=== PATIENT | male | born 1955 | race African-American/Black ===

== ENCOUNTER 2021-08-25 08:21 | Inpatient (IN) | payer MEDICARE, MEDICAID ==
[~2021-08-25] VITALS: Ht 182.9 cm; Wt 75.9 kg
[~2021-08-25 08:21] MED LIST: CLON0.1T PO; GABA-532 PO; METO-396 PO; OMEP20CA14 PO; PHEN100C12 PO; RISP05 PO; RIVA10TA PO; SIMV-43 PO; TRAM50TA3 PO
[2021-08-25] MEDS ORDERED: LEVETIRACETAM 1000MG PREMIX 100 ML IV ONE (09:30)
[2021-08-25 09:49] LABS: BASOPHILS % 0.7 % (0.0-2.0); EOSINOPHILS % 0.2 % (0.0-5.0); HEMATOCRIT. 43.8 % (42.0-52.0); HEMOGLOBIN. 14.1 g/dL (14.0-18.0); LYMPHOCYTES % 12.4 % (20.0-50.0); MEAN CORPUSCULAR HEMOGLOBIN 27.8 pg (28.0-32.0); MEAN CORPUSCULAR VOLUME 86.3 fL (80.0-94.0); MEAN PLATELET VOLUME 8.3 fl (7.4-10.4); MONOCYTES % 7.1 % (2.0-8.0); NEUTROPHILS % 79.6 % (40.0-76.0); PLATELET 228 x1000/uL (130-400); RED BLOOD CELL COUNT 5.07 mill/uL (4.7-6.1); RED CELL DISTRIBUTION WIDTH 14.4 % (11.6-14.6)
[2021-08-25 09:54] LABS: CHLORIDE 109 mEq/L (98-107)
[2021-08-25 09:59] LABS: ETHANOL BLOOD < 10 mg/dL
[2021-08-25 10:03] LABS: CARBAMAZEPINE < 0.5 ug/mL (4-12)
[2021-08-25 10:05] LABS: PHENOBARBITAL < 2.1 ug/mL (15.0-40.0)
[2021-08-25 10:38] LABS: VALPROIC ACID < 3.0 ug/mL (50-100)
[2021-08-25 12:31] LABS: CLARITY URINE CLEAR (CLEAR); COLOR URINE YELLOW (YELLOW); KETONES URINE NEGATIVE (NEGATIVE); LEUKOCYTE ESTERASE URINE NEGATIVE (NEGATIVE); NITRITE URINE NEGATIVE (NEGATIVE); OCCULT BLOOD URINE 2+ (NEGATIVE); PH URINE 8.5 (4.5-8.0); PROTEIN URINE 1+ (NEGATIVE); SPECIFIC GRAVITY URINE 1.017 (1.005-1.030); UROBILINOGEN URINE 0.2 E.U./dL (0.2-1.0)
[2021-08-25 12:56] LABS: *AMPHETAMINES SCREEN URINE NEGATIVE (NEGATIVE); *BARBITURATES SCREEN URINE NEGATIVE (NEGATIVE); *BENZODIAZEPINES SCREEN URINE NEGATIVE (NEGATIVE); *COCAINE SCREEN URINE NEGATIVE (NEGATIVE); METHADONE URINE SCREEN NEGATIVE (NEGATIVE); OPIATES URINE SCREEN NEGATIVE (NEGATIVE); PHENCYCLIDINE URINE SCREEN NEGATIVE (NEGATIVE)
[2021-08-25 12:57] LABS: CANNABINOID URINE SCREEN PRESUMTIVE POSITIVE (NEGATIVE)
[2021-08-25] MEDS ORDERED: CEFTRIAXONE 1 G PREMIX 50 ML IV NR (15:00)
[2021-08-25] MEDS ORDERED: SODIUM CHLORIDE 0.9% 1,000 ML IV ONE (15:00)
[2021-08-25 23:30] VITALS: BP 135/56
[2021-08-26] VITALS (12 sets, daily range): BP systolic 95–162; BP diastolic 35–110
[2021-08-26] MEDS ORDERED: PNEUMOCOCCAL 23-VAL P-SAC VAC 0.5 ML IM ONE (01:15)
[2021-08-26] MEDS ORDERED: LORAZEPAM 2MG/ML CPJ IV PRN (03:45)
[2021-08-26] MEDS: PENTOXIFYLLINE 400MG TABLET PO SCH ×3 (06:35→17:37)
[2021-08-26] MEDS ORDERED: RIVAROXABAN 10 MG TABLET PO SCH (09:00)
[2021-08-26] MEDS: PHENYTOIN SODIUM EXTENDED 100MG CAPSULE PO SCH ×3 (09:06→17:37)
[2021-08-26] MEDS: GABAPENTIN 300MG CAPSULE PO SCH ×2 (09:07→14:34)
[2021-08-26] MEDS: RISPERIDONE 0.5MG TABLET PO SCH ×3 (09:07→17:37)
[2021-08-26] MEDS: LEVETIRACETAM 500MG TABLET PO SCH (20:38)
[2021-08-27] VITALS (12 sets, daily range): BP systolic 121–165; BP diastolic 58–93
[2021-08-27] MEDS: PENTOXIFYLLINE 400MG TABLET PO SCH ×3 (06:46→17:39)
[2021-08-27] MEDS: RISPERIDONE 0.5MG TABLET PO SCH ×3 (09:02→17:39)
[2021-08-27] MEDS: RIVAROXABAN 15 MG TABLET PO SCH (09:02)
[2021-08-27] MEDS: LEVETIRACETAM 500MG TABLET PO SCH ×2 (09:03→20:05)
[2021-08-27] MEDS: PHENYTOIN SODIUM EXTENDED 100MG CAPSULE PO SCH ×3 (09:03→17:39)
[2021-08-28] VITALS (7 sets, daily range): BP systolic 138–165; BP diastolic 66–99
[2021-08-28] MEDS: RISPERIDONE 0.5MG TABLET PO SCH ×2 (08:00→12:13)
[2021-08-28] MEDS: PHENYTOIN SODIUM EXTENDED 100MG CAPSULE PO SCH ×2 (08:00→12:13)
[2021-08-28] MEDS: RIVAROXABAN 15 MG TABLET PO SCH (08:02)
[2021-08-28] MEDS: LEVETIRACETAM 500MG TABLET PO SCH (08:03)
[2021-08-28] MEDS: PENTOXIFYLLINE 400MG TABLET PO SCH ×2 (08:08→12:13)
[2021-08-28] MEDS ORDERED: CLONIDINE 0.1MG TABLET PO NR (12:00)
== END 2021-08-28 13:23 | disposition home health service (06) | DRG 101 ==
LOC: ER 08:24 → 3WST 14:49 → ENRESERV 21:44
PROVIDERS: ADMIT Internal Medicine; ATTEND Internal Medicine
PROC: 4A10X4Z Monitoring of Central Nervous Electrical Activity, External Approach (ICD-10-PCS; principal; 2021-08-28)
DX: G40.909 Epilepsy, unspecified, not intractable, without status epilepticus (principal); I10 Essential (primary) hypertension; Z79.899 Other long term (current) drug therapy; Z87.820 Personal history of traumatic brain injury; Z79.01 Long term (current) use of anticoagulants
CPT/HCPCS: 36415; 80053; 80156; 80165; 80184; 80185; 80305; 80320; 81003; 82140; 85025; 93005; 95816; 97162; 99285; J0696; J1953; G0480

== ENCOUNTER 2021-12-31 14:18 | Inpatient (IN) | payer MEDICARE, MEDICAID ==
[~2021-12-31] VITALS: Ht 180.3 cm; Wt 68.0 kg
[~2021-12-31 14:18] MED LIST changes: -CLON0.1T PO; -OMEP20CA14 PO; -TRAM50TA3 PO
[2021-12-31 15:53] LABS: HEMOGLOBIN. 13.3 g/dL (14.0-18.0); MEAN CORPUSCULAR HEMOGLOBIN 27.3 pg (28.0-32.0); MEAN CORPUSCULAR VOLUME 84.2 fL (80.0-94.0); MEAN PLATELET VOLUME 7.6 fl (7.4-10.4); PLATELET 184 x1000/uL (130-400); RED BLOOD CELL COUNT 4.87 mill/uL (4.7-6.1); RED CELL DISTRIBUTION WIDTH 14.2 % (11.6-14.6)
[2021-12-31 16:06] LABS: CHLORIDE 106 mEq/L (98-107)
[2021-12-31 16:10] LABS: ETHANOL BLOOD < 10 mg/dL
[2021-12-31] MEDS ORDERED: SODIUM CHLORIDE 0.9% 1,000 ML IV ONE (16:15)
[2021-12-31 17:15] LABS: PLATELET ESTIMATE NORMAL
[2021-12-31 17:30] LABS: INR 1.1; PARTIAL THROMBOPLASTIN TIME 31.6 sec (23.4-31.0); PROTHROMBIN TIME 11.5 sec (9.6-11.0)
[2021-12-31] MEDS ORDERED: LEVETIRACETAM 500MG PREMIX 100 ML IV ONE (18:30)
[2021-12-31] MEDS ORDERED: IPRATROPIUM/ALBUTEROL 0.5-3(2.5)MG/3ML NEB HHN PRN (18:45)
[2021-12-31] MEDS ORDERED: HYDROCODONE/ACETAMINOPHEN 5/325MG TABLET PO PRN (18:45)
[2021-12-31] MEDS ORDERED: DIPHENHYDRAMINE 50MG/ML VIAL IV PRN (18:45)
[2021-12-31] MEDS ORDERED: LORAZEPAM 2MG/ML CPJ IV PRN (18:45)
[2021-12-31] MEDS ORDERED: ONDANSETRON HCL 4MG/2ML INJ IV PRN (18:45)
[2021-12-31] MEDS ORDERED: MAGNESIUM/ALUMINUM HYDROXIDE/SIMETHICONE 30ML UDC PO PRN (18:45)
[2021-12-31] MEDS ORDERED: HYDRALAZINE 20MG/ML VIAL IV PRN (18:45)
[2021-12-31] MEDS ORDERED: GUAIFENESIN 200MG/10ML SUGAR FREE UDC PO PRN (18:45)
[2021-12-31] MEDS ORDERED: DOCUSATE SODIUM 100MG CAPSULE PO PRN (18:45)
[2021-12-31] MEDS ORDERED: MORPHINE SULFATE 2 MG/ML CPJ (NOT FOR IM USE) IV PRN (18:45)
[2021-12-31 20:22] LABS: CLARITY URINE CLEAR (CLEAR); COLOR URINE YELLOW (YELLOW); KETONES URINE TRACE (NEGATIVE); LEUKOCYTE ESTERASE URINE NEGATIVE (NEGATIVE); NITRITE URINE NEGATIVE (NEGATIVE); OCCULT BLOOD URINE 1+ (NEGATIVE); PROTEIN URINE TRACE (NEGATIVE); SPECIFIC GRAVITY URINE 1.025 (1.005-1.030)
[2021-12-31 20:34] LABS: *AMPHETAMINES SCREEN URINE NEGATIVE (NEGATIVE); *BARBITURATES SCREEN URINE NEGATIVE (NEGATIVE); *BENZODIAZEPINES SCREEN URINE NEGATIVE (NEGATIVE); *COCAINE SCREEN URINE NEGATIVE (NEGATIVE); CANNABINOID URINE SCREEN PRESUMTIVE POSITIVE (NEGATIVE); METHADONE URINE SCREEN NEGATIVE (NEGATIVE); OPIATES URINE SCREEN NEGATIVE (NEGATIVE); PHENCYCLIDINE URINE SCREEN NEGATIVE (NEGATIVE)
[2021-12-31] MEDS ORDERED: NICARDIPINE 100 MG in SODIUM CHLORIDE 0.9% 60 ML IV PRN (20:45)
[2021-12-31] MEDS ORDERED: MANNITOL 12.5G (25%) VIAL 50ML IV NR (21:00)
[2021-12-31] MEDS ORDERED: DEXAMETHASONE 10 MG/ML VIAL IV ONE (21:15)
[2021-12-31] MEDS ORDERED: MANNITOL 12.5G (25%) VIAL 50ML IV ONE (21:45)
[2021-12-31] MEDS ORDERED: SODIUM CHLORIDE 0.9% INJ 3ML FLUSH IVF SCH (22:00)
[2021-12-31] MEDS ORDERED: MANNITOL 20% (20GM/100ML) BAG 500ML PREMIX IV SCH (22:00)
[2021-12-31] MEDS: DEXT 5%/LACTATED RINGERS 1,000 ML IV SCH (22:00)
[2021-12-31] MEDS: MANNITOL 20% (20GM/100ML) BAG 500ML PREMIX IV SCH (22:49)
[2021-12-31 23:00] VITALS: BP 145/100
[2021-12-31 23:15] VITALS: BP 145/69
[2021-12-31 23:29] VITALS: BP 142/69
[2021-12-31 23:30] VITALS: BP 135/73
[2021-12-31 23:45] VITALS: BP 142/102
[2022-01-01] VITALS (88 sets, daily range): BP systolic 94–175; BP diastolic 42–121
[2022-01-01] MEDS ORDERED: DEXAMETHASONE 4MG/ML 1ML VIAL IV SCH
[2022-01-01] MEDS: DEXAMETHASONE 4MG/ML 1ML VIAL IV SCH ×7 (00:23→23:01)
[2022-01-01] MEDS: NICARDIPINE 100 MG in SODIUM CHLORIDE 0.9% 60 ML IV PRN ×3 (01:18→20:16)
[2022-01-01] MEDS: MANNITOL 20% (20GM/100ML) BAG 500ML PREMIX IV SCH ×6 (02:49→22:16)
[2022-01-01 05:29] LABS: BASOPHILS % 0.4 % (0.0-2.0); HEMATOCRIT. 41.2 % (42.0-52.0); HEMOGLOBIN. 13.7 g/dL (14.0-18.0); LYMPHOCYTES % 9.4 % (20.0-50.0); MONOCYTES % 2.2 % (2.0-8.0); PLATELET 193 x1000/uL (130-400)
[2022-01-01 05:31] LABS: CHLORIDE 105 mEq/L (98-107)
[2022-01-01] MEDS ORDERED: LEVETIRACETAM 500MG PREMIX 100 ML IV SCH (06:00)
[2022-01-01] MEDS ORDERED: THROMBIN (BOVINE) 5000 UNITS/VIAL TOP ONE (07:54)
[2022-01-01] MEDS ORDERED: GENTAMICIN SULF 40MG/ML 2ML VIAL ONE (07:54)
[2022-01-01] MEDS ORDERED: LIDOCAINE HCL/EPINEPHRINE 1%-EPI 1:100,000 20 ML VIAL ONE (07:54)
[2022-01-01] MEDS ORDERED: BACITRACIN 15GM TUBE TOP ONE (07:54)
[2022-01-01] MEDS ORDERED: ROCURONIUM BROMIDE 10MG/ML VIAL 5ML IV ONE ×2 (08:53→10:16)
[2022-01-01] MEDS ORDERED: MANNITOL 20% 500 ML IV ONE (08:53)
[2022-01-01] MEDS ORDERED: LEVETIRACETAM 500MG PREMIX 100 ML IV ONE (08:54)
[2022-01-01] MEDS ORDERED: PROPOFOL 200MG/20ML VIAL IV ONE ×2 (09:00→10:50)
[2022-01-01] MEDS ORDERED: CALCIUM CHLORIDE 1GM/10ML SYR IV ONE ×2 (09:11→09:31)
[2022-01-01 09:17] LABS: T4 FREE 0.82 ng/dL (0.76-1.46)
[2022-01-01] MEDS ORDERED: ALBUMIN HUMAN 25GM/100ML (25%) IV ONE (09:31)
[2022-01-01] MEDS ORDERED: HYDROMORPHONE HCL/PF 2MG/ML CPJ ONE (10:14)
[2022-01-01] MEDS ORDERED: DEXAMETHASONE 4MG/ML 1ML VIAL ONE (10:18)
[2022-01-01] MEDS ORDERED: CEFAZOLIN SODIUM 1000MG/VIAL ONE (10:18)
[2022-01-01] MEDS ORDERED: GLYCOPYRROLATE 0.2 MG/ML 2ML VIAL ONE ×2 (11:09)
[2022-01-01] MEDS ORDERED: HYDRALAZINE 20MG/ML VIAL ONE (11:27)
[2022-01-01] MEDS ORDERED: CEFAZOLIN SODIUM 1000MG/VIAL IV SCH (14:00)
[2022-01-01] MEDS: HYDRALAZINE 20MG/ML VIAL IV PRN ×3 (15:15→22:27)
[2022-01-01] MEDS: DEXT 5%/LACTATED RINGERS 1,000 ML IV SCH (15:15)
[2022-01-01] MEDS: MORPHINE SULFATE 4 MG/ML CPJ (NOT FOR IM USE) IV PRN ×3 (16:11→22:27)
[2022-01-01] MEDS: CEFAZOLIN 1000MG PREMIX 50 ML IV SCH (17:28)
[2022-01-01] MEDS: LEVETIRACETAM 500MG PREMIX 100 ML IV SCH (20:20)
[2022-01-02] VITALS (96 sets, daily range): BP systolic 51–156; BP diastolic 35–235
[2022-01-02] MEDS: MANNITOL 20% (20GM/100ML) BAG 500ML PREMIX IV SCH ×4 (02:36→14:05)
[2022-01-02] MEDS: CEFAZOLIN 1000MG PREMIX 50 ML IV SCH ×3 (02:36→19:34)
[2022-01-02] MEDS: NICARDIPINE 100 MG in SODIUM CHLORIDE 0.9% 60 ML IV PRN ×3 (03:07→23:46)
[2022-01-02] MEDS: MORPHINE SULFATE 4 MG/ML CPJ (NOT FOR IM USE) IV PRN ×3 (03:07→16:12)
[2022-01-02] MEDS: HYDRALAZINE 20MG/ML VIAL IV PRN ×2 (04:58→23:03)
[2022-01-02] MEDS: DEXT 5%/LACTATED RINGERS 1,000 ML IV SCH ×2 (05:21→23:01)
[2022-01-02] MEDS: LEVETIRACETAM 500MG PREMIX 100 ML IV SCH ×2 (09:11→20:33)
[2022-01-02 11:02] LABS: HEMATOCRIT 41.7 % (42.0-52.0); HEMOGLOBIN 13.8 g/dL (14.0-18.0); MEAN CORPUSCULAR HEMOGLOBIN 27.9 pg (28.0-32.0); MEAN CORPUSCULAR VOLUME 84.6 fL (80.0-94.0); PLATELET 211 x1000/uL (130-400); RED BLOOD CELL COUNT 4.94 mill/uL (4.7-6.1); RED CELL DISTRIBUTION WIDTH 14.2 % (11.6-14.6)
[2022-01-02 11:13] LABS: CHLORIDE 109 mEq/L (98-107)
[2022-01-02] MEDS ORDERED: NALOXONE HCL 0.4MG/ML VIAL IV PRN (15:00)
[2022-01-03] VITALS (90 sets, daily range): BP systolic 97–159; BP diastolic 37–98
[2022-01-03] MEDS: MORPHINE SULFATE 4 MG/ML CPJ (NOT FOR IM USE) IV PRN ×3 (02:35→12:58)
[2022-01-03] MEDS: CEFAZOLIN 1000MG PREMIX 50 ML IV SCH ×3 (02:35→18:23)
[2022-01-03 05:41] LABS: HEMATOCRIT. 38.1 % (42.0-52.0); HEMOGLOBIN. 12.5 g/dL (14.0-18.0); MEAN CORPUSCULAR HEMOGLOBIN 27.8 pg (28.0-32.0); MEAN CORPUSCULAR VOLUME 84.6 fL (80.0-94.0); MEAN PLATELET VOLUME 8.2 fl (7.4-10.4); PLATELET 177 x1000/uL (130-400); RED CELL DISTRIBUTION WIDTH 14.2 % (11.6-14.6)
[2022-01-03 05:57] LABS: CHLORIDE 114 mEq/L (98-107)
[2022-01-03] MEDS: LEVETIRACETAM 500MG PREMIX 100 ML IV SCH ×2 (08:49→21:34)
[2022-01-03 11:43] LABS: PLATELET ESTIMATE NORMAL
[2022-01-03] MEDS: NICARDIPINE 100 MG in SODIUM CHLORIDE 0.9% 60 ML IV PRN ×2 (12:34→21:58)
[2022-01-03] MEDS: DEXT 5%/LACTATED RINGERS 1,000 ML IV SCH (16:33)
[2022-01-03] MEDS ORDERED: AMLODIPINE 10MG TABLET PO SCH (17:00)
[2022-01-03] MEDS: DEXAMETHASONE 4MG/ML 1ML VIAL IV SCH (18:23)
[2022-01-03] MEDS: METOPROLOL SUCCINATE 50MG ER TABLET PO SCH (21:34)
[2022-01-04] VITALS (81 sets, daily range): BP systolic 91–165; BP diastolic 45–92
[2022-01-04] MEDS: DEXAMETHASONE 4MG/ML 1ML VIAL IV SCH ×3 (00:43→11:52)
[2022-01-04 04:26] LABS: HEMATOCRIT. 38.8 % (42.0-52.0); HEMOGLOBIN. 12.7 g/dL (14.0-18.0); MEAN CORPUSCULAR HEMOGLOBIN 27.8 pg (28.0-32.0); MEAN PLATELET VOLUME 7.8 fl (7.4-10.4); PLATELET 170 x1000/uL (130-400); RED BLOOD CELL COUNT 4.57 mill/uL (4.7-6.1); RED CELL DISTRIBUTION WIDTH 14.4 % (11.6-14.6)
[2022-01-04 04:37] LABS: CHLORIDE 113 mEq/L (98-107)
[2022-01-04] MEDS: CLONIDINE 0.1MG TABLET PO PRN (05:09)
[2022-01-04] MEDS: MORPHINE SULFATE 4 MG/ML CPJ (NOT FOR IM USE) IV PRN (05:13)
[2022-01-04 05:30] LABS: PLATELET ESTIMATE NORMAL
[2022-01-04] MEDS: DEXT 5%/LACTATED RINGERS 1,000 ML IV SCH ×2 (07:48→12:09)
[2022-01-04] MEDS: NICARDIPINE 100 MG in SODIUM CHLORIDE 0.9% 60 ML IV PRN ×2 (08:31→12:35)
[2022-01-04] MEDS: AMLODIPINE 10MG TABLET PO SCH (08:32)
[2022-01-04] MEDS: METOPROLOL SUCCINATE 50MG ER TABLET PO SCH ×2 (08:33→21:47)
[2022-01-04] MEDS: LEVETIRACETAM 500MG PREMIX 100 ML IV SCH ×2 (08:34→21:48)
[2022-01-05] VITALS (68 sets, daily range): BP systolic 85–158; BP diastolic 39–134
[2022-01-05] MEDS ORDERED: ACETAMINOPHEN 650MG SUPP PR PRN
[2022-01-05] MEDS ORDERED: LEVETIRACETAM 500MG PREMIX 100 ML IV NR
[2022-01-05] MEDS ORDERED: PHENYTOIN SODIUM 500 MG in SODIUM CHLORIDE 0.9% 50 ML IV NR (00:30)
[2022-01-05] MEDS ORDERED: PHENYTOIN SODIUM 300 MG in SODIUM CHLORIDE 0.9% 50 ML IV NR (01:30)
[2022-01-05] MEDS: DEXT 5%/LACTATED RINGERS 1,000 ML IV SCH (04:37)
[2022-01-05] MEDS: PHENYTOIN SODIUM 100MG/2ML VIAL IV SCH ×3 (05:42→22:01)
[2022-01-05] MEDS: NICARDIPINE 100 MG in SODIUM CHLORIDE 0.9% 60 ML IV PRN ×2 (06:44→19:10)
[2022-01-05] MEDS: AMLODIPINE 10MG TABLET PO SCH (08:21)
[2022-01-05] MEDS: METOPROLOL SUCCINATE 50MG ER TABLET PO SCH ×2 (08:21→22:00)
[2022-01-05] MEDS ORDERED: LEVETIRACETAM 1000MG PREMIX 100 ML IV SCH (09:00)
[2022-01-05 10:26] LABS: BASOPHILS % 0.1 % (0.0-2.0); HEMATOCRIT. 37.9 % (42.0-52.0); HEMOGLOBIN. 12.2 g/dL (14.0-18.0); LYMPHOCYTES % 11.9 % (20.0-50.0); MEAN CORPUSCULAR HEMOGLOBIN 27.2 pg (28.0-32.0); MEAN CORPUSCULAR VOLUME 84.1 fL (80.0-94.0); MEAN PLATELET VOLUME 8.1 fl (7.4-10.4); MONOCYTES % 12.4 % (2.0-8.0); NEUTROPHILS % 75.6 % (40.0-76.0); PLATELET 197 x1000/uL (130-400); RED CELL DISTRIBUTION WIDTH 14.2 % (11.6-14.6)
[2022-01-05 10:43] LABS: CHLORIDE 109 mEq/L (98-107)
[2022-01-05] MEDS: HYDRALAZINE 20MG/ML VIAL IV PRN (14:53)
[2022-01-05] MEDS ORDERED: LEVETIRACETAM 1,500 MG in SODIUM CHLORIDE 0.9% 100 ML IV SCH (20:00)
[2022-01-05] MEDS: LEVETIRACETAM 1,500 MG in SODIUM CHLORIDE 0.9% 100 ML IV SCH (20:00)
[2022-01-06] VITALS (84 sets, daily range): BP systolic 95–143; BP diastolic 38–104
[2022-01-06] MEDS: NICARDIPINE 100 MG in SODIUM CHLORIDE 0.9% 60 ML IV PRN ×2 (02:07→05:34)
[2022-01-06] MEDS: PHENYTOIN SODIUM 100MG/2ML VIAL IV SCH ×2 (05:27→17:05)
[2022-01-06 06:29] LABS: BASOPHILS % 0.5 % (0.0-2.0); EOSINOPHILS % 0.4 % (0.0-5.0); HEMATOCRIT. 38.6 % (42.0-52.0); HEMOGLOBIN. 12.5 g/dL (14.0-18.0); LYMPHOCYTES % 20.1 % (20.0-50.0); MEAN CORPUSCULAR HEMOGLOBIN 27.2 pg (28.0-32.0); MEAN PLATELET VOLUME 7.9 fl (7.4-10.4); MONOCYTES % 14.2 % (2.0-8.0); NEUTROPHILS % 64.8 % (40.0-76.0); PLATELET 202 x1000/uL (130-400); RED BLOOD CELL COUNT 4.59 mill/uL (4.7-6.1); RED CELL DISTRIBUTION WIDTH 14.1 % (11.6-14.6)
[2022-01-06 07:08] LABS: CHLORIDE 110 mEq/L (98-107)
[2022-01-06] MEDS: AMLODIPINE 10MG TABLET PO SCH (08:35)
[2022-01-06] MEDS: LEVETIRACETAM 1,500 MG in SODIUM CHLORIDE 0.9% 100 ML IV SCH ×2 (08:35→21:58)
[2022-01-06] MEDS: METOPROLOL SUCCINATE 50MG ER TABLET PO SCH ×2 (08:35→21:59)
[2022-01-06] MEDS: DEXT 5%/LACTATED RINGERS 1,000 ML IV SCH (11:07)
[2022-01-07] VITALS (52 sets, daily range): BP systolic 103–147; BP diastolic 48–112
[2022-01-07 06:18] LABS: BASOPHILS % 0.2 % (0.0-2.0); EOSINOPHILS % 1.4 % (0.0-5.0); HEMATOCRIT. 38.1 % (42.0-52.0); HEMOGLOBIN. 12.2 g/dL (14.0-18.0); LYMPHOCYTES % 20.2 % (20.0-50.0); MEAN CORPUSCULAR HEMOGLOBIN 27.5 pg (28.0-32.0); MEAN CORPUSCULAR VOLUME 85.6 fL (80.0-94.0); MEAN PLATELET VOLUME 8.1 fl (7.4-10.4); MONOCYTES % 14.8 % (2.0-8.0); NEUTROPHILS % 63.4 % (40.0-76.0); PLATELET 184 x1000/uL (130-400); RED BLOOD CELL COUNT 4.45 mill/uL (4.7-6.1); RED CELL DISTRIBUTION WIDTH 14.3 % (11.6-14.6)
[2022-01-07 06:34] LABS: CHLORIDE 111 mEq/L (98-107)
[2022-01-07] MEDS: PHENYTOIN SODIUM 100MG/2ML VIAL IV SCH ×2 (07:55→18:25)
[2022-01-07] MEDS: DEXT 5%/LACTATED RINGERS 1,000 ML IV SCH ×2 (07:55→21:07)
[2022-01-07] MEDS: AMLODIPINE 10MG TABLET PO SCH (08:27)
[2022-01-07] MEDS: METOPROLOL SUCCINATE 50MG ER TABLET PO SCH ×2 (08:27→21:06)
[2022-01-07] MEDS: LEVETIRACETAM 1,500 MG in SODIUM CHLORIDE 0.9% 100 ML IV SCH ×2 (10:38→22:22)
[2022-01-08] VITALS: BP 123/83
[2022-01-08 04:00] VITALS: BP 122/74
[2022-01-08] MEDS: PHENYTOIN 100 MG/4 ML UDC PO SCH ×2 (06:46→17:24)
[2022-01-08 08:00] VITALS: BP 127/69
[2022-01-08 08:15] LABS: BASOPHILS % 0.2 % (0.0-2.0); EOSINOPHILS % 2.4 % (0.0-5.0); HEMATOCRIT. 37.1 % (42.0-52.0); HEMOGLOBIN. 12.1 g/dL (14.0-18.0); LYMPHOCYTES % 16.6 % (20.0-50.0); MEAN CORPUSCULAR HEMOGLOBIN 27.5 pg (28.0-32.0); MEAN CORPUSCULAR VOLUME 84.1 fL (80.0-94.0); MEAN PLATELET VOLUME 8.4 fl (7.4-10.4); MONOCYTES % 14.4 % (2.0-8.0); NEUTROPHILS % 66.4 % (40.0-76.0); PLATELET 178 x1000/uL (130-400); RED BLOOD CELL COUNT 4.41 mill/uL (4.7-6.1)
[2022-01-08 08:21] LABS: CHLORIDE 109 mEq/L (98-107)
[2022-01-08] MEDS: AMLODIPINE 10MG TABLET PO SCH (08:34)
[2022-01-08] MEDS: METOPROLOL SUCCINATE 50MG ER TABLET PO SCH ×2 (08:34→21:04)
[2022-01-08] MEDS: LEVETIRACETAM 1,500 MG in SODIUM CHLORIDE 0.9% 100 ML IV SCH (08:50)
[2022-01-08 12:00] VITALS: BP 131/73
[2022-01-08] MEDS: DEXT 5%/LACTATED RINGERS 1,000 ML IV SCH (13:01)
[2022-01-08 16:00] VITALS: BP 133/79
[2022-01-08 20:00] VITALS: BP 122/71
[2022-01-08] MEDS: LEVETIRACETAM 500MG TABLET PO SCH (21:04)
[2022-01-09] VITALS: BP 173/62
[2022-01-09] MEDS: CLONIDINE 0.1MG TABLET PO PRN (01:08)
[2022-01-09 04:00] VITALS: BP 103/58
[2022-01-09] MEDS: DEXT 5%/LACTATED RINGERS 1,000 ML IV SCH ×2 (05:25→22:32)
[2022-01-09] MEDS: PHENYTOIN 100 MG/4 ML UDC PO SCH ×2 (05:25→17:38)
[2022-01-09 08:00] VITALS: BP 127/67
[2022-01-09] MEDS: AMLODIPINE 10MG TABLET PO SCH (08:13)
[2022-01-09] MEDS: LEVETIRACETAM 500MG TABLET PO SCH ×2 (08:13→22:31)
[2022-01-09] MEDS: METOPROLOL SUCCINATE 50MG ER TABLET PO SCH ×2 (08:14→22:31)
[2022-01-09 12:00] VITALS: BP 125/71
[2022-01-09 16:00] VITALS: BP 130/67
[2022-01-09 20:00] VITALS: BP 119/51
[2022-01-10] VITALS (7 sets, daily range): BP systolic 103–145; BP diastolic 56–76
[2022-01-10] MEDS: PHENYTOIN 100 MG/4 ML UDC PO SCH ×2 (05:07→16:42)
[2022-01-10] MEDS: METOPROLOL SUCCINATE 50MG ER TABLET PO SCH ×2 (08:12→21:40)
[2022-01-10] MEDS: LEVETIRACETAM 500MG TABLET PO SCH ×2 (08:12→21:27)
[2022-01-10] MEDS: AMLODIPINE 10MG TABLET PO SCH (08:13)
[2022-01-10] MEDS: DEXT 5%/LACTATED RINGERS 1,000 ML IV SCH (11:16)
[2022-01-10 12:32] LABS: HEMATOCRIT 37.3 % (42.0-52.0); HEMOGLOBIN 12.1 g/dL (14.0-18.0); MEAN CORPUSCULAR HEMOGLOBIN 27.4 pg (28.0-32.0); MEAN CORPUSCULAR VOLUME 84.4 fL (80.0-94.0); PLATELET 190 x1000/uL (130-400); RED BLOOD CELL COUNT 4.42 mill/uL (4.7-6.1)
[2022-01-10 12:48] LABS: CHLORIDE 102 mEq/L (98-107)
[2022-01-11] VITALS: BP 111/63
[2022-01-11 04:00] VITALS: BP 114/61
[2022-01-11] MEDS: PHENYTOIN 100 MG/4 ML UDC PO SCH ×2 (05:52→17:38)
[2022-01-11 07:44] VITALS: BP 101/66
[2022-01-11 08:16] LABS: BASOPHILS % 0.3 % (0.0-2.0); HEMATOCRIT. 31.5 % (42.0-52.0); HEMOGLOBIN. 10.5 g/dL (14.0-18.0); MEAN CORPUSCULAR HEMOGLOBIN 27.7 pg (28.0-32.0); MEAN PLATELET VOLUME 8.1 fl (7.4-10.4); MONOCYTES % 13.1 % (2.0-8.0); NEUTROPHILS % 66.6 % (40.0-76.0); PLATELET 197 x1000/uL (130-400); RED BLOOD CELL COUNT 3.79 mill/uL (4.7-6.1); RED CELL DISTRIBUTION WIDTH 13.7 % (11.6-14.6)
[2022-01-11] MEDS: DEXT 5%/LACTATED RINGERS 1,000 ML IV SCH (08:17)
[2022-01-11] MEDS: METOPROLOL SUCCINATE 50MG ER TABLET PO SCH ×2 (08:18→20:02)
[2022-01-11] MEDS: LEVETIRACETAM 500MG TABLET PO SCH ×2 (08:18→20:02)
[2022-01-11] MEDS: AMLODIPINE 10MG TABLET PO SCH (08:18)
[2022-01-11 08:55] LABS: CHLORIDE 106 mEq/L (98-107)
[2022-01-11 12:56] VITALS: BP 112/73
[2022-01-11 16:00] VITALS: BP 125/78
[2022-01-11 20:00] VITALS: BP 127/69
[2022-01-12] VITALS: BP 116/69
[2022-01-12] MEDS: DEXT 5%/LACTATED RINGERS 1,000 ML IV SCH ×2 (02:59→17:03)
[2022-01-12 04:00] VITALS: BP 126/62
[2022-01-12] MEDS: PHENYTOIN 100 MG/4 ML UDC PO SCH ×2 (04:31→17:03)
[2022-01-12 07:46] VITALS: BP 119/64
[2022-01-12] MEDS: METOPROLOL SUCCINATE 50MG ER TABLET PO SCH ×2 (08:44→20:33)
[2022-01-12] MEDS: LEVETIRACETAM 500MG TABLET PO SCH ×2 (08:44→20:21)
[2022-01-12] MEDS: AMLODIPINE 10MG TABLET PO SCH (08:45)
[2022-01-12 11:24] VITALS: BP 122/62
[2022-01-12 16:04] VITALS: BP 123/63
[2022-01-13 00:16] VITALS: BP 118/59
[2022-01-13 04:00] VITALS: BP 125/64
[2022-01-13] MEDS: PHENYTOIN 100 MG/4 ML UDC PO SCH ×2 (05:38→17:34)
[2022-01-13 08:00] VITALS: BP 117/66
[2022-01-13] MEDS: LEVETIRACETAM 500MG TABLET PO SCH ×2 (08:24→21:13)
[2022-01-13] MEDS: DEXT 5%/LACTATED RINGERS 1,000 ML IV SCH (08:24)
[2022-01-13] MEDS: AMLODIPINE 10MG TABLET PO SCH (08:25)
[2022-01-13] MEDS: METOPROLOL SUCCINATE 50MG ER TABLET PO SCH ×2 (08:25→21:13)
[2022-01-13 12:00] VITALS: BP 124/66
[2022-01-13 16:20] VITALS: BP 123/64
[2022-01-13 20:00] VITALS: BP_SYST 135; BP_SYST 150; BP_DIAS 67
[2022-01-14] VITALS (7 sets, daily range): BP systolic 114–133; BP diastolic 57–77
[2022-01-14] MEDS: PHENYTOIN 100 MG/4 ML UDC PO SCH ×2 (05:24→17:12)
[2022-01-14] MEDS: METOPROLOL SUCCINATE 50MG ER TABLET PO SCH ×2 (08:31→21:19)
[2022-01-14] MEDS: AMLODIPINE 10MG TABLET PO SCH (08:31)
[2022-01-14] MEDS: LEVETIRACETAM 500MG TABLET PO SCH ×2 (08:31→21:19)
[2022-01-14] MEDS: DEXT 5%/LACTATED RINGERS 1,000 ML IV SCH (17:12)
[2022-01-15] VITALS: BP 132/69
[2022-01-15 03:48] VITALS: BP 122/75
[2022-01-15] MEDS: PHENYTOIN 100 MG/4 ML UDC PO SCH ×2 (05:56→17:09)
[2022-01-15 06:04] LABS: BASOPHILS % 0.8 % (0.0-2.0); EOSINOPHILS % 0.9 % (0.0-5.0); HEMATOCRIT. 26.7 % (42.0-52.0); MEAN CORPUSCULAR HEMOGLOBIN 28.2 pg (28.0-32.0); MEAN CORPUSCULAR VOLUME 83.8 fL (80.0-94.0); MEAN PLATELET VOLUME 7.5 fl (7.4-10.4); MONOCYTES % 11.7 % (2.0-8.0); NEUTROPHILS % 72.6 % (40.0-76.0); PLATELET 314 x1000/uL (130-400); RED BLOOD CELL COUNT 3.18 mill/uL (4.7-6.1); RED CELL DISTRIBUTION WIDTH 14.3 % (11.6-14.6)
[2022-01-15 06:25] LABS: CHLORIDE 104 mEq/L (98-107)
[2022-01-15 08:00] VITALS: BP 118/56
[2022-01-15] MEDS: LEVETIRACETAM 500MG TABLET PO SCH ×2 (09:37→21:40)
[2022-01-15] MEDS: METOPROLOL SUCCINATE 50MG ER TABLET PO SCH ×2 (09:39→21:38)
[2022-01-15] MEDS: AMLODIPINE 10MG TABLET PO SCH (09:40)
[2022-01-15] MEDS: DEXT 5%/LACTATED RINGERS 1,000 ML IV SCH (11:40)
[2022-01-15 12:00] VITALS: BP 113/80
[2022-01-15 16:00] VITALS: BP 123/73
[2022-01-15 20:00] VITALS: BP 106/60
[2022-01-16] VITALS: BP 123/57
[2022-01-16] MEDS: DEXT 5%/LACTATED RINGERS 1,000 ML IV SCH ×2 (03:14→20:52)
[2022-01-16] MEDS: ACETAMINOPHEN 325MG TABLET PO PRN (03:46)
[2022-01-16 04:00] VITALS: BP 128/68
[2022-01-16] MEDS: PHENYTOIN 100 MG/4 ML UDC PO SCH ×2 (06:17→17:39)
[2022-01-16 08:00] VITALS: BP 116/56
[2022-01-16] MEDS: LEVETIRACETAM 500MG TABLET PO SCH ×2 (08:38→20:51)
[2022-01-16] MEDS: AMLODIPINE 10MG TABLET PO SCH (08:39)
[2022-01-16] MEDS: METOPROLOL SUCCINATE 50MG ER TABLET PO SCH ×2 (08:39→20:52)
[2022-01-16 12:00] VITALS: BP 115/61
[2022-01-16] MEDS ORDERED: POLYETHYLENE GLYCOL 3350 (17GM) 1 DOSE PACK PO NR (14:00)
[2022-01-16 16:00] VITALS: BP 127/67
[2022-01-16 18:12] LABS: HEMATOCRIT 24.3 % (42.0-52.0); HEMOGLOBIN 8.2 g/dL (14.0-18.0); MEAN CORPUSCULAR HEMOGLOBIN 28.6 pg (28.0-32.0); PLATELET 289 x1000/uL (130-400); RED BLOOD CELL COUNT 2.86 mill/uL (4.7-6.1); RED CELL DISTRIBUTION WIDTH 14.3 % (11.6-14.6)
[2022-01-16 20:00] VITALS: BP 127/63
[2022-01-17] VITALS: BP 108/65
[2022-01-17 04:00] VITALS: BP 114/63
[2022-01-17] MEDS: PHENYTOIN 100 MG/4 ML UDC PO SCH ×2 (05:49→17:08)
[2022-01-17 06:26] LABS: BASOPHILS % 0.8 % (0.0-2.0); EOSINOPHILS % 0.7 % (0.0-5.0); HEMATOCRIT. 23.7 % (42.0-52.0); HEMOGLOBIN. 7.4 g/dL (14.0-18.0); LYMPHOCYTES % 14.9 % (20.0-50.0); MEAN CORPUSCULAR HEMOGLOBIN 27.2 pg (28.0-32.0); MEAN CORPUSCULAR VOLUME 86.5 fL (80.0-94.0); MEAN PLATELET VOLUME 6.7 fl (7.4-10.4); MONOCYTES % 12.2 % (2.0-8.0); NEUTROPHILS % 71.4 % (40.0-76.0); PLATELET 285 x1000/uL (130-400); RED BLOOD CELL COUNT 2.74 mill/uL (4.7-6.1); RED CELL DISTRIBUTION WIDTH 14.9 % (11.6-14.6)
[2022-01-17 06:55] LABS: CHLORIDE 106 mEq/L (98-107)
[2022-01-17 08:00] VITALS: BP 116/63
[2022-01-17 10:55] LABS: HEMATOCRIT 23.1 % (42.0-52.0); HEMOGLOBIN 7.6 g/dL (14.0-18.0)
[2022-01-17] MEDS: LEVETIRACETAM 500MG TABLET PO SCH ×2 (11:09→20:42)
[2022-01-17] MEDS: AMLODIPINE 10MG TABLET PO SCH (11:10)
[2022-01-17] MEDS: METOPROLOL SUCCINATE 50MG ER TABLET PO SCH ×2 (11:10→20:42)
[2022-01-17 12:00] VITALS: BP 116/63
[2022-01-17] MEDS: DEXT 5%/LACTATED RINGERS 1,000 ML IV SCH (14:37)
[2022-01-17] MEDS: ACETAMINOPHEN 325MG TABLET PO PRN (15:47)
[2022-01-17 15:51] VITALS: BP 117/59
[2022-01-17 20:00] VITALS: BP 115/63
[2022-01-18] VITALS: BP 110/65
[2022-01-18 04:00] VITALS: BP 122/62
[2022-01-18] MEDS: PHENYTOIN 100 MG/4 ML UDC PO SCH ×2 (05:09→17:02)
[2022-01-18] MEDS: DEXT 5%/LACTATED RINGERS 1,000 ML IV SCH ×2 (05:09→23:58)
[2022-01-18 08:00] VITALS: BP 94/57
[2022-01-18] MEDS: LEVETIRACETAM 500MG TABLET PO SCH ×2 (08:05→21:36)
[2022-01-18] MEDS: METOPROLOL SUCCINATE 50MG ER TABLET PO SCH ×2 (08:06→21:36)
[2022-01-18] MEDS: AMLODIPINE 10MG TABLET PO SCH (08:06)
[2022-01-18 08:39] LABS: BASOPHILS % 0.3 % (0.0-2.0); EOSINOPHILS % 0.3 % (0.0-5.0); HEMATOCRIT. 22.5 % (42.0-52.0); HEMOGLOBIN. 7.2 g/dL (14.0-18.0); LYMPHOCYTES % 8.4 % (20.0-50.0); MEAN CORPUSCULAR VOLUME 84.4 fL (80.0-94.0); MEAN PLATELET VOLUME 6.9 fl (7.4-10.4); MONOCYTES % 10.7 % (2.0-8.0); NEUTROPHILS % 80.3 % (40.0-76.0); PLATELET 277 x1000/uL (130-400); RED BLOOD CELL COUNT 2.66 mill/uL (4.7-6.1); RED CELL DISTRIBUTION WIDTH 14.9 % (11.6-14.6)
[2022-01-18 09:01] LABS: CHLORIDE 106 mEq/L (98-107)
[2022-01-18 12:00] VITALS: BP 103/68
[2022-01-18 16:00] VITALS: BP 111/66
[2022-01-18 20:00] VITALS: BP 116/74
[2022-01-18 20:06] LABS: FOLIC ACID (FOLATE) SERUM 4.7 ng/mL (>5.38)
[2022-01-18] MEDS: ACETAMINOPHEN 325MG TABLET PO PRN (21:35)
[2022-01-19] VITALS: BP 106/61
[2022-01-19 04:00] VITALS: BP 122/70
[2022-01-19] MEDS: PHENYTOIN 100 MG/4 ML UDC PO SCH ×2 (05:45→17:03)
[2022-01-19 06:23] LABS: BASOPHILS % 0.5 % (0.0-2.0); EOSINOPHILS % 0.6 % (0.0-5.0); HEMATOCRIT. 22.2 % (42.0-52.0); HEMOGLOBIN. 7.3 g/dL (14.0-18.0); LYMPHOCYTES % 9.8 % (20.0-50.0); MEAN CORPUSCULAR HEMOGLOBIN 27.9 pg (28.0-32.0); MEAN CORPUSCULAR VOLUME 84.9 fL (80.0-94.0); MEAN PLATELET VOLUME 6.9 fl (7.4-10.4); MONOCYTES % 12.4 % (2.0-8.0); NEUTROPHILS % 76.7 % (40.0-76.0); PLATELET 271 x1000/uL (130-400); RED BLOOD CELL COUNT 2.61 mill/uL (4.7-6.1); RED CELL DISTRIBUTION WIDTH 15.2 % (11.6-14.6)
[2022-01-19 06:30] LABS: CHLORIDE 105 mEq/L (98-107)
[2022-01-19 08:00] VITALS: BP 129/76
[2022-01-19] MEDS: METOPROLOL SUCCINATE 50MG ER TABLET PO SCH ×2 (08:05→21:00)
[2022-01-19] MEDS: ACETAMINOPHEN 325MG TABLET PO PRN ×2 (08:05→21:01)
[2022-01-19] MEDS: LEVETIRACETAM 500MG TABLET PO SCH ×2 (08:05→21:01)
[2022-01-19] MEDS: AMLODIPINE 10MG TABLET PO SCH (08:05)
[2022-01-19 12:00] VITALS: BP 146/96
[2022-01-19] MEDS: PIPERACILLIN/TAZOBACTAM 3.375 G in DEXTROSE 5% WATER 50 ML IV SCH ×2 (13:02→21:18)
[2022-01-19] MEDS: DEXT 5%/LACTATED RINGERS 1,000 ML IV SCH (13:41)
[2022-01-19] MEDS: FOLIC ACID 1MG TABLET PO SCH (15:52)
[2022-01-19] MEDS: IRON SUCROSE COMPLEX 100 MG/5 ML ML IV SCH (15:52)
[2022-01-19 16:00] VITALS: BP 128/71
[2022-01-19 20:00] VITALS: BP 104/55
[2022-01-20] VITALS: BP 98/57
[2022-01-20 04:00] VITALS: BP 106/59
[2022-01-20] MEDS: PIPERACILLIN/TAZOBACTAM 3.375 G in DEXTROSE 5% WATER 50 ML IV SCH ×2 (06:36→15:20)
[2022-01-20] MEDS: DEXT 5%/LACTATED RINGERS 1,000 ML IV SCH (06:36)
[2022-01-20] MEDS: PHENYTOIN 100 MG/4 ML UDC PO SCH ×2 (06:36→17:54)
[2022-01-20 07:27] LABS: HEMATOCRIT. 23.5 % (42.0-52.0); HEMOGLOBIN. 7.5 g/dL (14.0-18.0); MEAN CORPUSCULAR HEMOGLOBIN 26.9 pg (28.0-32.0); MEAN CORPUSCULAR VOLUME 84.6 fL (80.0-94.0); MEAN PLATELET VOLUME 7.1 fl (7.4-10.4); PLATELET 273 x1000/uL (130-400); RED BLOOD CELL COUNT 2.78 mill/uL (4.7-6.1); RED CELL DISTRIBUTION WIDTH 15.2 % (11.6-14.6)
[2022-01-20 07:41] LABS: CHLORIDE 107 mEq/L (98-107)
[2022-01-20 08:00] VITALS: BP 130/63
[2022-01-20] MEDS: FOLIC ACID 1MG TABLET PO SCH (08:54)
[2022-01-20] MEDS: LEVETIRACETAM 500MG TABLET PO SCH ×2 (08:54→21:33)
[2022-01-20] MEDS: AMLODIPINE 10MG TABLET PO SCH (08:55)
[2022-01-20] MEDS: METOPROLOL SUCCINATE 50MG ER TABLET PO SCH ×2 (08:55→21:33)
[2022-01-20 12:00] VITALS: BP 105/53
[2022-01-20] MEDS: IRON SUCROSE COMPLEX 100 MG/5 ML ML IV SCH (15:20)
[2022-01-20] MEDS ORDERED: SORBITOL 70% SOLN 30ML PO NR (15:45)
[2022-01-20 16:00] VITALS: BP 101/63
[2022-01-20 16:41] LABS: PLATELET ESTIMATE NORMAL
[2022-01-20 20:00] VITALS: BP 115/66
[2022-01-20] MEDS: AMOXICILLIN/POTASSIUM CLAVULANATE 875/125MG TAB PO SCH (21:33)
[2022-01-21] VITALS (11 sets, daily range): BP systolic 101–151; BP diastolic 51–79
[2022-01-21] MEDS: DEXT 5%/LACTATED RINGERS 1,000 ML IV SCH ×2 (01:09→17:37)
[2022-01-21] MEDS: ACETAMINOPHEN 325MG TABLET PO PRN (01:24)
[2022-01-21] MEDS: PHENYTOIN 100 MG/4 ML UDC PO SCH ×2 (05:15→17:37)
[2022-01-21] MEDS: AMLODIPINE 10MG TABLET PO SCH (09:00)
[2022-01-21] MEDS: METOPROLOL SUCCINATE 50MG ER TABLET PO SCH ×2 (09:00→20:42)
[2022-01-21] MEDS: FOLIC ACID 1MG TABLET PO SCH (09:49)
[2022-01-21] MEDS: LEVETIRACETAM 500MG TABLET PO SCH ×2 (09:49→20:42)
[2022-01-21] MEDS: AMOXICILLIN/POTASSIUM CLAVULANATE 875/125MG TAB PO SCH ×2 (09:49→20:42)
[2022-01-21 13:37] LABS: HEMATOCRIT. 25.2 % (42.0-52.0); HEMOGLOBIN. 8.1 g/dL (14.0-18.0); MEAN CORPUSCULAR HEMOGLOBIN 27.7 pg (28.0-32.0); MEAN CORPUSCULAR VOLUME 86.4 fL (80.0-94.0); MEAN PLATELET VOLUME 6.9 fl (7.4-10.4); PLATELET 249 x1000/uL (130-400); RED BLOOD CELL COUNT 2.92 mill/uL (4.7-6.1); RED CELL DISTRIBUTION WIDTH 14.9 % (11.6-14.6)
[2022-01-21 13:39] LABS: CHLORIDE 108 mEq/L (98-107)
[2022-01-21 14:05] LABS: PLATELET ESTIMATE NORMAL
[2022-01-21] MEDS: IRON SUCROSE COMPLEX 100 MG/5 ML ML IV SCH (14:31)
[2022-01-21] MEDS ORDERED: IOHEXOL-300 100 ML BOTTLE ONE (16:44)
[2022-01-22] VITALS: BP 130/74
[2022-01-22 04:00] VITALS: BP 122/67
[2022-01-22] MEDS: PHENYTOIN 100 MG/4 ML UDC PO SCH ×2 (05:27→17:08)
[2022-01-22 08:00] VITALS: BP 124/64
[2022-01-22] MEDS: FOLIC ACID 1MG TABLET PO SCH (08:07)
[2022-01-22] MEDS: LEVETIRACETAM 500MG TABLET PO SCH ×2 (08:07→21:32)
[2022-01-22] MEDS: AMLODIPINE 10MG TABLET PO SCH (08:07)
[2022-01-22] MEDS: AMOXICILLIN/POTASSIUM CLAVULANATE 875/125MG TAB PO SCH ×2 (08:07→21:49)
[2022-01-22] MEDS: METOPROLOL SUCCINATE 50MG ER TABLET PO SCH ×2 (08:08→21:32)
[2022-01-22] MEDS: DEXT 5%/LACTATED RINGERS 1,000 ML IV SCH (10:20)
[2022-01-22 12:00] VITALS: BP 108/60
[2022-01-22 13:13] LABS: HEMATOCRIT. 25.6 % (42.0-52.0); HEMOGLOBIN. 8.4 g/dL (14.0-18.0); MEAN CORPUSCULAR HEMOGLOBIN 28.7 pg (28.0-32.0); MEAN CORPUSCULAR VOLUME 87.3 fL (80.0-94.0); PLATELET 263 x1000/uL (130-400); RED BLOOD CELL COUNT 2.94 mill/uL (4.7-6.1); RED CELL DISTRIBUTION WIDTH 15.2 % (11.6-14.6)
[2022-01-22 13:47] LABS: CHLORIDE 109 mEq/L (98-107)
[2022-01-22 16:00] VITALS: BP 127/67
[2022-01-22 17:20] LABS: PLATELET ESTIMATE NORMAL
[2022-01-22 20:00] VITALS: BP 119/58
[2022-01-22] MEDS: ACETAMINOPHEN 325MG TABLET PO PRN (21:52)
[2022-01-23] VITALS: BP 115/60
[2022-01-23] MEDS: DEXT 5%/LACTATED RINGERS 1,000 ML IV SCH (02:51)
[2022-01-23 04:00] VITALS: BP 116/63
[2022-01-23] MEDS: PHENYTOIN 100 MG/4 ML UDC PO SCH (05:21)
[2022-01-23 08:00] VITALS: BP 114/58
[2022-01-23] MEDS: METOPROLOL SUCCINATE 50MG ER TABLET PO SCH (08:17)
[2022-01-23] MEDS: FOLIC ACID 1MG TABLET PO SCH (08:17)
[2022-01-23] MEDS: LEVETIRACETAM 500MG TABLET PO SCH (08:17)
[2022-01-23] MEDS: AMLODIPINE 10MG TABLET PO SCH (08:18)
[2022-01-23] MEDS: AMOXICILLIN/POTASSIUM CLAVULANATE 875/125MG TAB PO SCH (08:35)
[2022-01-23 10:53] LABS: BASOPHILS % 0.5 % (0.0-2.0); EOSINOPHILS % 3.5 % (0.0-5.0); HEMATOCRIT. 25.6 % (42.0-52.0); HEMOGLOBIN. 8.4 g/dL (14.0-18.0); LYMPHOCYTES % 18.4 % (20.0-50.0); MEAN CORPUSCULAR HEMOGLOBIN 28.8 pg (28.0-32.0); MEAN CORPUSCULAR VOLUME 87.7 fL (80.0-94.0); MEAN PLATELET VOLUME 6.7 fl (7.4-10.4); MONOCYTES % 14.2 % (2.0-8.0); NEUTROPHILS % 63.4 % (40.0-76.0); PLATELET 286 x1000/uL (130-400); RED BLOOD CELL COUNT 2.92 mill/uL (4.7-6.1); RED CELL DISTRIBUTION WIDTH 15.7 % (11.6-14.6)
[2022-01-23 11:03] LABS: CHLORIDE 109 mEq/L (98-107)
[2022-01-23 12:00] VITALS: BP 114/66
[2022-01-23 16:00] VITALS: BP 105/59
[2022-01-23 16:52] VITALS: BP 105/59
== END 2022-01-23 17:15 | DRG 25 ==
LOC: ER 14:18 → EDBEDREQ 17:39 → MICUSO 18:29 → EDBEDREQSVC 18:31 → EDBEDREQ 18:31 → EDBEDREQTM 18:31 → CANRESERV 20:38 → ENRESERV 20:38 → 8WST 01-07 16:51
PROVIDERS: ADMIT Internal Medicine; ATTEND Internal Medicine
PROC: 00U207Z Supplement Dura Mater with Autologous Tissue Substitute, Open Approach (ICD-10-PCS; principal; 2022-01-01)
PROC: 00B00ZZ Excision of Brain, Open Approach (ICD-10-PCS; 2022-01-01)
PROC: 4A10X4Z Monitoring of Central Nervous Electrical Activity, External Approach (ICD-10-PCS; 2022-01-08)
PROC: 30233N1 Transfusion of Nonautologous Red Blood Cells into Peripheral Vein, Percutaneous Approach (ICD-10-PCS; 2022-01-21)
DX: C71.9 Malignant neoplasm of brain, unspecified (principal); I60.9 Nontraumatic subarachnoid hemorrhage, unspecified; G93.6 Cerebral edema; A41.51 Sepsis due to Escherichia coli [E. coli]; I61.5 Nontraumatic intracerebral hemorrhage, intraventricular; I61.0 Nontraumatic intracerebral hemorrhage in hemisphere, subcortical; E44.1 Mild protein-calorie malnutrition; G81.94 Hemiplegia, unspecified affecting left nondominant side; G93.40 Encephalopathy, unspecified; E87.0 Hyperosmolality and hypernatremia; I82.511 Chronic embolism and thrombosis of right femoral vein; G40.911 Epilepsy, unspecified, intractable, with status epilepticus; I82.531 Chronic embolism and thrombosis of right popliteal vein; N39.0 Urinary tract infection, site not specified; I74.5 Embolism and thrombosis of iliac artery; I74.09 Other arterial embolism and thrombosis of abdominal aorta; K92.1 Melena; E78.5 Hyperlipidemia, unspecified; G93.2 Benign intracranial hypertension; G93.89 Other specified disorders of brain; F03.90 Unspecified dementia, unspecified severity, without behavioral disturbance, psychotic disturbance, mood disturbance, and anxiety; F12.90 Cannabis use, unspecified, uncomplicated; F17.200 Nicotine dependence, unspecified, uncomplicated; D63.8 Anemia in other chronic diseases classified elsewhere; Z20.822 Contact with and (suspected) exposure to COVID-19; D50.0 Iron deficiency anemia secondary to blood loss (chronic); K64.4 Residual hemorrhoidal skin tags; K59.00 Constipation, unspecified; I12.9 Hypertensive chronic kidney disease with stage 1 through stage 4 chronic kidney disease, or unspecified chronic kidney disease; I25.10 Atherosclerotic heart disease of native coronary artery without angina pectoris; J44.9 Chronic obstructive pulmonary disease, unspecified; N18.9 Chronic kidney disease, unspecified; Z79.01 Long term (current) use of anticoagulants; Z86.711 Personal history of pulmonary embolism; Z86.73 Personal history of transient ischemic attack (TIA), and cerebral infarction without residual deficits; Z74.01 Bed confinement status; Z68.20 Body mass index [BMI] 20.0-20.9, adult
CPT/HCPCS: 36415; 70553; 71045; 74018; 74177; 80048; 80053; 80061; 80185; 80305; 80320; 81003; 82607; 82728; 82746; 82962; 83036; 83540; 83880; 84145; 84439; 84443; 84484; 85014; 85018; 85025; 85027; 85044; 85379; 86850; 86900; 86920; 87077; 87186; 87426; 88307; 88331; 93005; 93306; 93970; 95816; 97110; 97112; 97162; 97166; 97530; 97535; 99291; C1713; J0360; J0690; J1100; J1165; J1170; J1200; J1580; J1953; J2060; J2150; J2270; J2543; J2704; J3490; J7030; J7050; J7060; J7120; P9016; P9047; Q9967; G0480

== ENCOUNTER 2022-01-28 18:11 | Inpatient (IN) | payer MEDICARE, MEDICAID ==
[~2022-01-28] VITALS: Ht 165.1 cm; Wt 63.5 kg
[~2022-01-28 18:11] MED LIST changes: -RIVA10TA PO
[2022-01-28 18:54] LABS: BASOPHILS % 0.8 % (0.0-2.0); EOSINOPHILS % 4.1 % (0.0-5.0); HEMOGLOBIN. 9.6 g/dL (14.0-18.0); LYMPHOCYTES % 24.8 % (20.0-50.0); MEAN CORPUSCULAR HEMOGLOBIN 28.2 pg (28.0-32.0); MEAN CORPUSCULAR VOLUME 87.9 fL (80.0-94.0); MEAN PLATELET VOLUME 6.6 fl (7.4-10.4); MONOCYTES % 10.6 % (2.0-8.0); NEUTROPHILS % 59.7 % (40.0-76.0); PLATELET 340 x1000/uL (130-400); RED BLOOD CELL COUNT 3.42 mill/uL (4.7-6.1); RED CELL DISTRIBUTION WIDTH 16.8 % (11.6-14.6)
[2022-01-28 18:59] LABS: CHLORIDE 108 mEq/L (98-107)
[2022-01-28 19:03] LABS: INR 1.1; PROTHROMBIN TIME 11.7 sec (9.6-11.0)
[2022-01-28] MEDS ORDERED: ACETAMINOPHEN 325MG TABLET PO PRN ×2 (21:00→21:30)
[2022-01-28] MEDS ORDERED: GUAIFENESIN 200MG/10ML SUGAR FREE UDC PO PRN ×2 (21:00→21:30)
[2022-01-28] MEDS ORDERED: HYDRALAZINE 20MG/ML VIAL IV PRN (21:00)
[2022-01-28] MEDS ORDERED: MAGNESIUM/ALUMINUM HYDROXIDE/SIMETHICONE 30ML UDC PO PRN ×2 (21:00→21:30)
[2022-01-28] MEDS ORDERED: HYDROCODONE/ACETAMINOPHEN 5/325MG TABLET PO PRN ×2 (21:00→21:30)
[2022-01-28] MEDS ORDERED: ONDANSETRON HCL 4MG/2ML INJ IV PRN ×2 (21:00→21:30)
[2022-01-28] MEDS ORDERED: LORAZEPAM 2MG/ML CPJ IV PRN ×2 (21:00→21:30)
[2022-01-28] MEDS ORDERED: DOCUSATE SODIUM 100MG CAPSULE PO PRN ×2 (21:00→21:30)
[2022-01-28] MEDS ORDERED: MORPHINE SULFATE 2 MG/ML CPJ (NOT FOR IM USE) IV PRN (21:00)
[2022-01-28] MEDS ORDERED: NALOXONE HCL 0.4MG/ML VIAL IV PRN (21:00)
[2022-01-28] MEDS ORDERED: CLONIDINE 0.1MG TABLET PO PRN ×2 (21:00→21:30)
[2022-01-28] MEDS ORDERED: IPRATROPIUM/ALBUTEROL 0.5-3(2.5)MG/3ML NEB HHN PRN (21:00)
[2022-01-28] MEDS ORDERED: DIPHENHYDRAMINE 50MG/ML VIAL IV PRN ×2 (21:00→21:30)
[2022-01-28] MEDS ORDERED: SODIUM CHLORIDE 0.45% 1,000 ML IV SCH (21:30)
[2022-01-28] MEDS ORDERED: IPRATROPIUM/ALBUTEROL 0.5-3(2.5)MG/3ML NEB NEB PRN (21:30)
[2022-01-28] MEDS ORDERED: NA PHOS,M-B/NA PHOS,DI-BA ENEMA 118ML PR PRN (21:30)
[2022-01-28] MEDS: SODIUM CHLORIDE 0.9% INJ 3ML FLUSH IVF SCH (21:39)
[2022-01-28] MEDS: MORPHINE SULFATE 2 MG/ML CPJ (NOT FOR IM USE) IV PRN (22:43)
[2022-01-28 23:32] VITALS: BP 102/64
[2022-01-29] VITALS: BP 102/64
[2022-01-29] MEDS ORDERED: LEVE1000 PO (01:19)
[2022-01-29] MEDS ORDERED: ATROV3 NS (01:19)
[2022-01-29] MEDS ORDERED: FOLI-43 PO (01:19)
[2022-01-29] MEDS ORDERED: PHENYTOIN PO (01:19)
[2022-01-29] MEDS ORDERED: AMLO10TA4 PO (01:19)
[2022-01-29] MEDS ORDERED: DOCU-150 PO (01:19)
[2022-01-29] MEDS ORDERED: CLON-457 PO (01:19)
[2022-01-29] MEDS ORDERED: METO-396 PO (01:19)
[2022-01-29 01:41] LABS: CHLORIDE 109 mEq/L (98-107)
[2022-01-29 04:00] VITALS: BP 127/73
[2022-01-29] MEDS: SODIUM CHLORIDE 0.9% INJ 3ML FLUSH IVF SCH ×3 (05:38→21:48)
[2022-01-29] MEDS: MORPHINE SULFATE 2 MG/ML CPJ (NOT FOR IM USE) IV PRN (05:58)
[2022-01-29 07:17] LABS: BASOPHILS % 0.8 % (0.0-2.0); EOSINOPHILS % 3.3 % (0.0-5.0); HEMATOCRIT. 29.5 % (42.0-52.0); HEMOGLOBIN. 9.3 g/dL (14.0-18.0); LYMPHOCYTES % 23.8 % (20.0-50.0); MEAN CORPUSCULAR HEMOGLOBIN 27.9 pg (28.0-32.0); MEAN CORPUSCULAR VOLUME 88.4 fL (80.0-94.0); MEAN PLATELET VOLUME 7.2 fl (7.4-10.4); MONOCYTES % 11.6 % (2.0-8.0); NEUTROPHILS % 60.5 % (40.0-76.0); PLATELET 316 x1000/uL (130-400); RED BLOOD CELL COUNT 3.33 mill/uL (4.7-6.1); RED CELL DISTRIBUTION WIDTH 16.6 % (11.6-14.6)
[2022-01-29 07:51] LABS: CHLORIDE 113 mEq/L (98-107)
[2022-01-29 08:00] VITALS: BP_SYST 126; BP_SYST 140; BP_DIAS 59; BP_DIAS 76
[2022-01-29 12:00] VITALS: BP 131/70
[2022-01-29 13:29] LABS: TOTAL IRON BINDING CAPACITY 278 ug/dL (250-450)
[2022-01-29 13:48] LABS: FERRITIN 139 ng/mL (22-322)
[2022-01-29 14:32] LABS: VITAMIN B12 SERUM 436 pg/mL (211-911)
[2022-01-29 15:00] LABS: FOLIC ACID (FOLATE) SERUM > 20.00 ng/mL (>5.38)
[2022-01-29 16:00] VITALS: BP 129/71
[2022-01-29 20:00] VITALS: BP 122/92
[2022-01-29] MEDS ORDERED: ACETAMINOPHEN 325MG TABLET PO PRN (20:45)
[2022-01-29] MEDS: LEVOFLOXACIN 500MG PREMIX 100 ML IV SCH (21:48)
[2022-01-30] VITALS: BP_SYST 115; BP_SYST 98; BP_DIAS 55; BP_DIAS 71
[2022-01-30 04:00] VITALS: BP 138/67
[2022-01-30] MEDS: SODIUM CHLORIDE 0.9% INJ 3ML FLUSH IVF SCH ×3 (05:54→21:22)
[2022-01-30 07:29] LABS: BASOPHILS % 0.7 % (0.0-2.0); EOSINOPHILS % 1.9 % (0.0-5.0); HEMOGLOBIN. 9.2 g/dL (14.0-18.0); LYMPHOCYTES % 20.2 % (20.0-50.0); MEAN CORPUSCULAR VOLUME 87.9 fL (80.0-94.0); MEAN PLATELET VOLUME 7.3 fl (7.4-10.4); MONOCYTES % 11.1 % (2.0-8.0); NEUTROPHILS % 66.1 % (40.0-76.0); PLATELET 315 x1000/uL (130-400); RED CELL DISTRIBUTION WIDTH 16.5 % (11.6-14.6)
[2022-01-30 07:40] LABS: INR 1.1; PROTHROMBIN TIME 12.2 sec (9.6-11.0)
[2022-01-30 07:41] LABS: CHLORIDE 106 mEq/L (98-107)
[2022-01-30 08:00] VITALS: BP 92/68
[2022-01-30] MEDS ORDERED: BISACODYL 5MG TABLET PO SCH ×2 (09:30→11:00)
[2022-01-30] MEDS ORDERED: SORBITOL 70% SOLN 30ML PO SCH (11:00)
[2022-01-30 12:00] VITALS: BP 100/74
[2022-01-30] MEDS ORDERED: SORBITOL 70% SOLN 30ML PO ONE (15:45)
[2022-01-30] MEDS ORDERED: POTASSIUM CHLORIDE 20MEQ/PACKET PO NR (15:45)
[2022-01-30 16:00] VITALS: BP 126/96
[2022-01-30 20:00] VITALS: BP 118/88
[2022-01-30] MEDS ORDERED: SORBITOL 70% SOLN 30ML PO NR (20:00)
[2022-01-30] MEDS: LEVOFLOXACIN 500MG PREMIX 100 ML IV SCH (21:49)
[2022-01-31] VITALS: BP 98/55
[2022-01-31 03:23] LABS: HEMATOCRIT. 35.2 % (42.0-52.0); HEMOGLOBIN. 11.2 g/dL (14.0-18.0); MEAN CORPUSCULAR HEMOGLOBIN 27.5 pg (28.0-32.0); MEAN CORPUSCULAR VOLUME 86.7 fL (80.0-94.0); MEAN PLATELET VOLUME 6.7 fl (7.4-10.4); PLATELET 333 x1000/uL (130-400); RED BLOOD CELL COUNT 4.06 mill/uL (4.7-6.1); RED CELL DISTRIBUTION WIDTH 16.7 % (11.6-14.6)
[2022-01-31 03:34] LABS: INR 1.3; PROTHROMBIN TIME 13.3 sec (9.6-11.0)
[2022-01-31 04:00] VITALS: BP 98/64
[2022-01-31 04:20] LABS: CHLORIDE 115 mEq/L (98-107)
[2022-01-31] MEDS: SODIUM CHLORIDE 0.9% INJ 3ML FLUSH IVF SCH ×2 (06:12→14:00)
[2022-01-31] MEDS ORDERED: NA PHOS,M-B/NA PHOS,DI-BA ENEMA 118ML PR ONE (06:45)
[2022-01-31 08:00] VITALS: BP 105/75
[2022-01-31 08:42] LABS: NUCLEATED RED BLOOD CELLS 1 /100 WBC; PLATELET ESTIMATE NORMAL
[2022-01-31] MEDS ORDERED: NA PHOS,M-B/NA PHOS,DI-BA ENEMA 118ML PR NR (10:15)
[2022-01-31] MEDS ORDERED: SODIUM CHLORIDE 0.9% 500 ML IV NR (10:15)
[2022-01-31 12:00] VITALS: BP 125/65
[2022-01-31] MEDS ORDERED: MIDAZOLAM HCL 2 MG/2 ML VIAL ONE (13:25)
[2022-01-31] MEDS ORDERED: PROPOFOL 200MG/20ML VIAL IV ONE (13:25)
[2022-01-31] MEDS ORDERED: FENTANYL CITRATE/PF 50MCG/ML 2ML VIAL ONE (13:29)
[2022-01-31] MEDS ORDERED: DEXAMETHASONE 4MG/ML 1ML VIAL ONE (13:32)
[2022-01-31] MEDS ORDERED: ONDANSETRON HCL 4MG/2ML INJ ONE (13:32)
[2022-01-31] MEDS ORDERED: LIDOCAINE HCL 1% 10 MG/ML 10ML VIAL ONE (13:32)
[2022-01-31 16:00] VITALS: BP 140/77
[2022-01-31 20:00] VITALS: BP 110/94
[2022-02-01] VITALS: BP 101/63
[2022-02-01] MEDS: LEVOFLOXACIN 500MG PREMIX 100 ML IV SCH ×2 (01:26→21:59)
[2022-02-01] MEDS: SODIUM CHLORIDE 0.9% INJ 3ML FLUSH IVF SCH ×4 (01:26→21:59)
[2022-02-01 04:00] VITALS: BP 106/75
[2022-02-01 12:07] VITALS: BP 108/62
[2022-02-01 16:00] VITALS: BP 102/73
[2022-02-01] MEDS ORDERED: IRON SUCROSE COMPLEX 100 MG/5 ML ML IV SCH (18:00)
[2022-02-01 20:00] VITALS: BP 117/61
[2022-02-02] VITALS: BP_SYST 104; BP_SYST 117; BP_DIAS 61; BP_DIAS 77
[2022-02-02 01:37] LABS: BASOPHILS % 0.5 % (0.0-2.0); EOSINOPHILS % 0.3 % (0.0-5.0); HEMATOCRIT. 25.8 % (42.0-52.0); HEMOGLOBIN. 8.2 g/dL (14.0-18.0); LYMPHOCYTES % 15.2 % (20.0-50.0); MEAN CORPUSCULAR HEMOGLOBIN 27.4 pg (28.0-32.0); MEAN CORPUSCULAR VOLUME 86.5 fL (80.0-94.0); MEAN PLATELET VOLUME 7.8 fl (7.4-10.4); PLATELET 230 x1000/uL (130-400); RED BLOOD CELL COUNT 2.98 mill/uL (4.7-6.1); RED CELL DISTRIBUTION WIDTH 16.6 % (11.6-14.6)
[2022-02-02 01:54] LABS: CHLORIDE 109 mEq/L (98-107)
[2022-02-02 02:11] LABS: HEPATITIS B SURFACE ANTIGEN NEGATIVE
[2022-02-02 04:00] VITALS: BP 122/73
[2022-02-02] MEDS: SODIUM CHLORIDE 0.9% INJ 3ML FLUSH IVF SCH (05:35)
[2022-02-02 06:01] LABS: CHLORIDE 111 mEq/L (98-107)
[2022-02-02 06:24] LABS: BASOPHILS % 0.4 % (0.0-2.0); EOSINOPHILS % 0.2 % (0.0-5.0); HEMATOCRIT. 26.9 % (42.0-52.0); HEMOGLOBIN. 8.7 g/dL (14.0-18.0); LYMPHOCYTES % 15.6 % (20.0-50.0); MEAN CORPUSCULAR VOLUME 87.2 fL (80.0-94.0); MEAN PLATELET VOLUME 7.9 fl (7.4-10.4); MONOCYTES % 10.1 % (2.0-8.0); NEUTROPHILS % 73.7 % (40.0-76.0); PLATELET 235 x1000/uL (130-400); RED BLOOD CELL COUNT 3.09 mill/uL (4.7-6.1); RED CELL DISTRIBUTION WIDTH 16.7 % (11.6-14.6)
== END 2022-02-02 07:00 | DRG 394 ==
LOC: ER 18:11 → 7WST 20:34 → ENRESERV 21:52
PROVIDERS: ADMIT Internal Medicine; ATTEND Internal Medicine
PROC: 0DJD8ZZ Inspection of Lower Intestinal Tract, Via Natural or Artificial Opening Endoscopic (ICD-10-PCS; principal; 2022-01-31)
DX: K64.8 Other hemorrhoids (principal); I82.511 Chronic embolism and thrombosis of right femoral vein; I82.531 Chronic embolism and thrombosis of right popliteal vein; I74.5 Embolism and thrombosis of iliac artery; I74.09 Other arterial embolism and thrombosis of abdominal aorta; E44.1 Mild protein-calorie malnutrition; F03.90 Unspecified dementia, unspecified severity, without behavioral disturbance, psychotic disturbance, mood disturbance, and anxiety; R74.01 Elevation of levels of liver transaminase levels; E78.5 Hyperlipidemia, unspecified; I95.9 Hypotension, unspecified; Z20.822 Contact with and (suspected) exposure to COVID-19; G40.909 Epilepsy, unspecified, not intractable, without status epilepticus; D50.9 Iron deficiency anemia, unspecified; I10 Essential (primary) hypertension; Z86.73 Personal history of transient ischemic attack (TIA), and cerebral infarction without residual deficits; Z79.899 Other long term (current) drug therapy; Z85.841 Personal history of malignant neoplasm of brain; Z87.891 Personal history of nicotine dependence; Z68.23 Body mass index [BMI] 23.0-23.9, adult
CPT/HCPCS: 36415; 71045; 76700; 80048; 80053; 80076; 82140; 82270; 82607; 82728; 82746; 83540; 83550; 84484; 85025; 85044; 86705; 86709; 86803; 86850; 86900; 87340; 87426; 93005; 93970; 99285; J1100; J1956; J2250; J2270; J2405; J2704; J3010; J3490

== ENCOUNTER → 2022-02-25 | Outpatient (CLI) | payer MEDICARE, MEDICAID ==
[~2022-02-25] MED LIST changes: +AMLO10TA4 PO; +ATROV3 NS; +CLON-457 PO; +DOCU-150 PO; +FOLI-43 PO; -GABA-532 PO; +LEVE1000 PO; -PHEN100C12 PO; +PHENYTOIN PO; -RISP05 PO; -SIMV-43 PO
== END | disposition home or self-care (01) ==
LOC: CT 10:33
PROVIDERS: ATTEND Neurological Surgery
DX: G93.89 Other specified disorders of brain (principal); R51.9 Headache, unspecified

== ENCOUNTER → 2022-04-04 | Outpatient (CLI) | payer MEDICARE, MEDICAID ==
[~2022-04-04] MED LIST changes: +GADOTERATE MEGLUMINE 5 MMOL/10 ML VIAL IV ONE
== END | disposition home or self-care (01) ==
LOC: MRI 09:37
PROVIDERS: ATTEND Neurological Surgery
DX: I61.8 Other nontraumatic intracerebral hemorrhage (principal); R60.0 Localized edema; R51.9 Headache, unspecified
CPT/HCPCS: 70553; A9577

== ENCOUNTER 2022-04-15 08:59 | Inpatient (IN) | payer MEDICARE, MEDICAID ==
[~2022-04-15] VITALS: Ht 165.1 cm; Wt 49.5 kg
[~2022-04-15 08:59] MED LIST changes: -GADOTERATE MEGLUMINE 5 MMOL/10 ML VIAL IV ONE; -PHENYTOIN PO
[2022-04-15 09:48] LABS: BASOPHILS % 0.2 % (0.0-2.0); EOSINOPHILS % 0.1 % (0.0-5.0); HEMATOCRIT. 44.9 % (42.0-52.0); HEMOGLOBIN. 14.3 g/dL (14.0-18.0); LYMPHOCYTES % 11.7 % (20.0-50.0); MEAN CORPUSCULAR HEMOGLOBIN 24.2 pg (28.0-32.0); MEAN CORPUSCULAR VOLUME 75.9 fL (80.0-94.0); MONOCYTES % 12.1 % (2.0-8.0); NEUTROPHILS % 75.9 % (40.0-76.0); PLATELET 170 x1000/uL (130-400); RED BLOOD CELL COUNT 5.92 mill/uL (4.7-6.1); RED CELL DISTRIBUTION WIDTH 19.2 % (11.6-14.6)
[2022-04-15 09:52] LABS: CHLORIDE 107 mEq/L (98-107)
[2022-04-15 10:00] LABS: ETHANOL BLOOD < 10 mg/dL
[2022-04-15 11:53] LABS: CLARITY URINE CLOUDY (CLEAR); COLOR URINE DARK YELLOW (YELLOW); KETONES URINE TRACE (NEGATIVE); LEUKOCYTE ESTERASE URINE TRACE (NEGATIVE); NITRITE URINE NEGATIVE (NEGATIVE); OCCULT BLOOD URINE NEGATIVE (NEGATIVE); PROTEIN URINE 1+ (NEGATIVE); SPECIFIC GRAVITY URINE 1.024 (1.005-1.030)
[2022-04-15 12:03] LABS: *AMPHETAMINES SCREEN URINE NEGATIVE (NEGATIVE); *BARBITURATES SCREEN URINE NEGATIVE (NEGATIVE); *BENZODIAZEPINES SCREEN URINE NEGATIVE (NEGATIVE); *COCAINE SCREEN URINE NEGATIVE (NEGATIVE); CANNABINOID URINE SCREEN NEGATIVE (NEGATIVE); METHADONE URINE SCREEN NEGATIVE (NEGATIVE); OPIATES URINE SCREEN NEGATIVE (NEGATIVE); PHENCYCLIDINE URINE SCREEN NEGATIVE (NEGATIVE)
[2022-04-15] MEDS ORDERED: DOCUSATE SODIUM 100MG CAPSULE PO PRN (13:30)
[2022-04-15] MEDS ORDERED: MAGNESIUM/ALUMINUM HYDROXIDE/SIMETHICONE 30ML UDC PO PRN (13:30)
[2022-04-15] MEDS ORDERED: DIPHENHYDRAMINE 50MG/ML VIAL IV PRN (13:30)
[2022-04-15] MEDS ORDERED: GUAIFENESIN 200MG/10ML SUGAR FREE UDC PO PRN (13:30)
[2022-04-15] MEDS ORDERED: HYDRALAZINE 20MG/ML VIAL IV PRN (13:30)
[2022-04-15] MEDS ORDERED: IPRATROPIUM/ALBUTEROL 0.5-3(2.5)MG/3ML NEB HHN PRN (13:30)
[2022-04-15] MEDS ORDERED: CLONIDINE 0.1MG TABLET PO PRN (13:30)
[2022-04-15] MEDS ORDERED: HYDROCODONE/ACETAMINOPHEN 5/325MG TABLET PO PRN (13:30)
[2022-04-15] MEDS ORDERED: ONDANSETRON HCL 4MG/2ML INJ IV PRN (13:30)
[2022-04-15] MEDS ORDERED: MORPHINE SULFATE 2 MG/ML CPJ (NOT FOR IM USE) IV PRN (13:30)
[2022-04-15] MEDS: SODIUM CHLORIDE 0.45% 1,000 ML IV SCH (13:31)
[2022-04-15] MEDS: SODIUM CHLORIDE 0.9% INJ 3ML FLUSH IVF SCH ×2 (13:32→22:10)
[2022-04-15 16:15] VITALS: BP 117/93
[2022-04-15] MEDS ORDERED: NALOXONE HCL 0.4MG/ML VIAL IV PRN (16:45)
[2022-04-15] MEDS ORDERED: ENOXAPARIN 60MG/0.6ML SYR SUBCUT SCH (17:00)
[2022-04-15 17:56] VITALS: BP 117/93
[2022-04-15 20:00] VITALS: BP 117/68
[2022-04-16] VITALS (12 sets, daily range): BP systolic 93–121; BP diastolic 66–89
[2022-04-16] MEDS ORDERED: PHENYTOIN PO (01:19)
[2022-04-16] MEDS ORDERED: ACET-3163 PO (01:26)
[2022-04-16] MEDS ORDERED: GABA100C MT (01:26)
[2022-04-16] MEDS ORDERED: PHEN51CR24 TP (01:26)
[2022-04-16] MEDS ORDERED: MULT-230 MT (01:26)
[2022-04-16] MEDS ORDERED: TOPUD MT (01:26)
[2022-04-16] MEDS ORDERED: LIDO700A15 TP (01:26)
[2022-04-16] MEDS ORDERED: HYDR-4001 MT (01:26)
[2022-04-16 06:11] LABS: BASOPHILS % 0.1 % (0.0-2.0); HEMATOCRIT. 41.7 % (42.0-52.0); HEMOGLOBIN. 13.4 g/dL (14.0-18.0); INR 1.1; LYMPHOCYTES % 10.7 % (20.0-50.0); MEAN CORPUSCULAR HEMOGLOBIN 24.1 pg (28.0-32.0); MEAN CORPUSCULAR VOLUME 74.9 fL (80.0-94.0); MEAN PLATELET VOLUME 9.3 fl (7.4-10.4); MONOCYTES % 11.2 % (2.0-8.0); PLATELET 195 x1000/uL (130-400); PROTHROMBIN TIME 11.9 sec (9.6-11.0); RED BLOOD CELL COUNT 5.57 mill/uL (4.7-6.1); RED CELL DISTRIBUTION WIDTH 19.2 % (11.6-14.6)
[2022-04-16] MEDS: SODIUM CHLORIDE 0.9% INJ 3ML FLUSH IVF SCH ×3 (06:47→21:58)
[2022-04-16 07:14] LABS: CHLORIDE 107 mEq/L (98-107)
[2022-04-16] MEDS ORDERED: CEFTRIAXONE 1 G PREMIX 50 ML IV SCH (11:00)
[2022-04-16] MEDS: SODIUM CHLORIDE 0.45% 1,000 ML IV SCH ×2 (13:14→21:57)
[2022-04-16 13:40] LABS: CREATINE KINASE 238 IU/L (39-308)
[2022-04-16] MEDS: CEFTRIAXONE 1,000 MG in DEXTROSE 5% WATER 50 ML IV SCH (13:42)
[2022-04-16 16:31] LABS: BG BASE EXCESS -0.7 mmol/L (-2.0-2.0); BG CARBOXYHEMOGLOBIN 0.2 % (0.5-1.5); BG FRACTION INSPIRED OXYGEN 32; BG HCO3 ACT 22.7 mmol/L (22.0-26.0); BG METHEMOGLOBIN 0.2 % (0.0-1.5); BG OXYHEMOGLOBIN 89.6 % (94.0-97.0); BG PCO2 33.9 mmHg (35.0-45.0); BG PH 7.443 (7.350-7.450); BG PO2 59.3 mmHg (75.0-100.0); BG SAMPLE SITE RIGHT RADIAL; BG TOTAL HEMOGLOBIN 14.3 g/dL (12.0-18.0); BG VENT MODE NASAL CANNULA
[2022-04-16] MEDS ORDERED: ENOXAPARIN 60MG/0.6ML SYR SUBCUT SCH (17:00)
[2022-04-16] MEDS: ACETAMINOPHEN 325MG TABLET PO PRN (17:43)
[2022-04-16] MEDS ORDERED: NICARDIPINE 100 MG in SODIUM CHLORIDE 0.9% 60 ML IV PRN (21:30)
[2022-04-17] VITALS (37 sets, daily range): BP systolic 99–149; BP diastolic 62–90
[2022-04-17] MEDS: DEXAMETHASONE 4MG/ML 1ML VIAL IV SCH ×4 (00:53→17:32)
[2022-04-17 06:15] LABS: HEMATOCRIT. 37.5 % (42.0-52.0); HEMOGLOBIN. 12.1 g/dL (14.0-18.0); MEAN CORPUSCULAR HEMOGLOBIN 24.3 pg (28.0-32.0); MEAN CORPUSCULAR VOLUME 75.1 fL (80.0-94.0); MEAN PLATELET VOLUME 9.4 fl (7.4-10.4); PLATELET 212 x1000/uL (130-400); RED BLOOD CELL COUNT 4.99 mill/uL (4.7-6.1); RED CELL DISTRIBUTION WIDTH 18.9 % (11.6-14.6)
[2022-04-17] MEDS: SODIUM CHLORIDE 0.45% 1,000 ML IV SCH ×3 (06:24→20:39)
[2022-04-17] MEDS: SODIUM CHLORIDE 0.9% INJ 3ML FLUSH IVF SCH ×2 (06:24→14:00)
[2022-04-17 06:32] LABS: CHLORIDE 108 mEq/L (98-107)
[2022-04-17] MEDS: LEVETIRACETAM 500MG PREMIX 100 ML IV SCH ×2 (08:34→20:33)
[2022-04-17 12:31] LABS: TOTAL IRON BINDING CAPACITY 321 ug/dL (250-450)
[2022-04-17] MEDS: CEFTRIAXONE 1,000 MG in DEXTROSE 5% WATER 50 ML IV SCH (13:35)
[2022-04-17 16:36] LABS: PLATELET ESTIMATE NORMAL
[2022-04-18] VITALS: BP 119/77
[2022-04-18] MEDS: SODIUM CHLORIDE 0.9% INJ 3ML FLUSH IVF SCH ×4 (00:22→21:05)
[2022-04-18] MEDS: DEXAMETHASONE 4MG/ML 1ML VIAL IV SCH ×2 (00:22→05:27)
[2022-04-18 04:00] VITALS: BP_SYST 100; BP_SYST 102; BP_DIAS 66; BP_DIAS 69
[2022-04-18] MEDS: SODIUM CHLORIDE 0.45% 1,000 ML IV SCH ×2 (05:28→21:05)
[2022-04-18 06:55] LABS: HEMATOCRIT. 33.4 % (42.0-52.0); HEMOGLOBIN. 10.6 g/dL (14.0-18.0); MEAN CORPUSCULAR HEMOGLOBIN 23.5 pg (28.0-32.0); MEAN CORPUSCULAR VOLUME 74.2 fL (80.0-94.0); MEAN PLATELET VOLUME 8.9 fl (7.4-10.4); PLATELET 211 x1000/uL (130-400); RED BLOOD CELL COUNT 4.51 mill/uL (4.7-6.1); RED CELL DISTRIBUTION WIDTH 19.1 % (11.6-14.6)
[2022-04-18 08:00] VITALS: BP 138/63
[2022-04-18 08:00] LABS: CHLORIDE 111 mEq/L (98-107)
[2022-04-18] MEDS: FERROUS SULFATE 300MG/5ML UDC PO SCH ×3 (08:05→16:54)
[2022-04-18] MEDS: LEVETIRACETAM 500MG PREMIX 100 ML IV SCH ×2 (08:06→21:05)
[2022-04-18 08:10] LABS: PHOSPHORUS 1.5 mg/dL (2.5-4.9)
[2022-04-18] MEDS ORDERED: POTASSIUM PHOS,M-BASIC-D-BASIC 20 MMOL in DEXT 5% WATER 243.3333 ML IV NR (11:30)
[2022-04-18 12:00] VITALS: BP 115/75
[2022-04-18 16:05] VITALS: BP 151/65
[2022-04-18] MEDS: CEFTRIAXONE 1,000 MG in DEXTROSE 5% WATER 50 ML IV SCH (16:54)
[2022-04-18 20:00] VITALS: BP 127/81
[2022-04-18] MEDS: ACETAMINOPHEN 325MG TABLET PO PRN (21:04)
[2022-04-19] VITALS: BP 125/77
[2022-04-19 04:00] VITALS: BP 112/67
[2022-04-19 04:16] LABS: PLATELET ESTIMATE NORMAL
[2022-04-19] MEDS: SODIUM CHLORIDE 0.9% INJ 3ML FLUSH IVF SCH ×3 (06:35→21:26)
[2022-04-19 07:47] LABS: BASOPHILS % 0.1 % (0.0-2.0); EOSINOPHILS % 0.1 % (0.0-5.0); HEMATOCRIT. 32.5 % (42.0-52.0); HEMOGLOBIN. 10.4 g/dL (14.0-18.0); LYMPHOCYTES % 7.3 % (20.0-50.0); MEAN CORPUSCULAR HEMOGLOBIN 23.7 pg (28.0-32.0); MEAN CORPUSCULAR VOLUME 74.1 fL (80.0-94.0); MEAN PLATELET VOLUME 8.7 fl (7.4-10.4); MONOCYTES % 9.6 % (2.0-8.0); NEUTROPHILS % 82.9 % (40.0-76.0); PLATELET 178 x1000/uL (130-400); RED BLOOD CELL COUNT 4.38 mill/uL (4.7-6.1); RED CELL DISTRIBUTION WIDTH 19.2 % (11.6-14.6)
[2022-04-19 07:58] LABS: CHLORIDE 114 mEq/L (98-107)
[2022-04-19 08:00] VITALS: BP 120/84
[2022-04-19 08:05] LABS: PHOSPHORUS 1.7 mg/dL (2.5-4.9)
[2022-04-19] MEDS: LEVETIRACETAM 500MG PREMIX 100 ML IV SCH ×2 (08:29→21:26)
[2022-04-19] MEDS: FERROUS SULFATE 300MG/5ML UDC PO SCH ×3 (08:29→17:12)
[2022-04-19] MEDS: SODIUM CHLORIDE 0.45% 1,000 ML IV SCH ×2 (08:29→16:52)
[2022-04-19 12:00] VITALS: BP 126/83
[2022-04-19] MEDS: ACETAMINOPHEN 325MG TABLET PO PRN (13:01)
[2022-04-19] MEDS: CEFTRIAXONE 1,000 MG in DEXTROSE 5% WATER 50 ML IV SCH (14:54)
[2022-04-19 16:00] VITALS: BP 126/76
[2022-04-19 20:00] VITALS: BP 132/84
[2022-04-20] VITALS: BP 123/72
[2022-04-20 04:00] VITALS: BP 123/80
[2022-04-20] MEDS: SODIUM CHLORIDE 0.45% 1,000 ML IV SCH ×2 (04:43→15:57)
[2022-04-20] MEDS: SODIUM CHLORIDE 0.9% INJ 3ML FLUSH IVF SCH (05:00)
[2022-04-20 07:28] LABS: BASOPHILS % 0.1 % (0.0-2.0); EOSINOPHILS % 0.2 % (0.0-5.0); HEMATOCRIT. 33.1 % (42.0-52.0); HEMOGLOBIN. 10.2 g/dL (14.0-18.0); LYMPHOCYTES % 8.4 % (20.0-50.0); MEAN CORPUSCULAR HEMOGLOBIN 23.2 pg (28.0-32.0); MEAN CORPUSCULAR VOLUME 75.2 fL (80.0-94.0); MEAN PLATELET VOLUME 8.6 fl (7.4-10.4); MONOCYTES % 9.3 % (2.0-8.0); PLATELET 197 x1000/uL (130-400); RED BLOOD CELL COUNT 4.41 mill/uL (4.7-6.1); RED CELL DISTRIBUTION WIDTH 19.7 % (11.6-14.6)
[2022-04-20 07:47] LABS: CHLORIDE 113 mEq/L (98-107)
[2022-04-20 08:00] VITALS: BP 130/85
[2022-04-20] MEDS: FERROUS SULFATE 300MG/5ML UDC PO SCH ×3 (08:02→17:13)
[2022-04-20] MEDS: LEVETIRACETAM 500MG PREMIX 100 ML IV SCH ×2 (08:02→20:54)
[2022-04-20 12:00] VITALS: BP 121/77
[2022-04-20] MEDS: CEFTRIAXONE 1,000 MG in DEXTROSE 5% WATER 50 ML IV SCH (12:00)
[2022-04-20 16:00] VITALS: BP 128/71
[2022-04-20 20:00] VITALS: BP 133/85
[2022-04-21] VITALS: BP 143/84
[2022-04-21 04:00] VITALS: BP 116/71
[2022-04-21 06:31] LABS: BASOPHILS % 0.1 % (0.0-2.0); EOSINOPHILS % 0.6 % (0.0-5.0); HEMATOCRIT. 31.9 % (42.0-52.0); HEMOGLOBIN. 9.9 g/dL (14.0-18.0); LYMPHOCYTES % 7.9 % (20.0-50.0); MEAN CORPUSCULAR HEMOGLOBIN 23.3 pg (28.0-32.0); MEAN CORPUSCULAR VOLUME 75.1 fL (80.0-94.0); MEAN PLATELET VOLUME 8.6 fl (7.4-10.4); MONOCYTES % 7.6 % (2.0-8.0); NEUTROPHILS % 83.8 % (40.0-76.0); PLATELET 194 x1000/uL (130-400); RED BLOOD CELL COUNT 4.25 mill/uL (4.7-6.1); RED CELL DISTRIBUTION WIDTH 19.3 % (11.6-14.6)
[2022-04-21 07:25] LABS: CHLORIDE 109 mEq/L (98-107)
[2022-04-21 08:00] VITALS: BP 121/89
[2022-04-21] MEDS: FERROUS SULFATE 300MG/5ML UDC PO SCH ×3 (09:11→16:40)
[2022-04-21] MEDS: LEVETIRACETAM 500MG PREMIX 100 ML IV SCH ×2 (09:11→21:37)
[2022-04-21] MEDS ORDERED: POTASSIUM CHLORIDE 20MEQ/PACKET NG NR (11:00)
[2022-04-21] MEDS: CEFTRIAXONE 1,000 MG in DEXTROSE 5% WATER 50 ML IV SCH (11:51)
[2022-04-21 12:00] VITALS: BP 127/75
[2022-04-21 16:00] VITALS: BP 142/81
[2022-04-21 20:00] VITALS: BP 135/76
[2022-04-21] MEDS: PANTOPRAZOLE SODIUM 40 MG/VIAL IV SCH (21:36)
[2022-04-22] VITALS: BP 139/85
[2022-04-22 03:32] LABS: BASOPHILS % 0.1 % (0.0-2.0); EOSINOPHILS % 0.8 % (0.0-5.0); HEMATOCRIT. 30.7 % (42.0-52.0); HEMOGLOBIN. 9.5 g/dL (14.0-18.0); LYMPHOCYTES % 9.3 % (20.0-50.0); MEAN CORPUSCULAR VOLUME 74.3 fL (80.0-94.0); MEAN PLATELET VOLUME 8.1 fl (7.4-10.4); MONOCYTES % 7.1 % (2.0-8.0); NEUTROPHILS % 82.7 % (40.0-76.0); PLATELET 214 x1000/uL (130-400); RED BLOOD CELL COUNT 4.13 mill/uL (4.7-6.1)
[2022-04-22 03:43] LABS: INR 1.1; PROTHROMBIN TIME 11.3 sec (9.6-11.0)
[2022-04-22 03:44] LABS: CHLORIDE 111 mEq/L (98-107)
[2022-04-22 03:56] LABS: PHOSPHORUS 2.1 mg/dL (2.5-4.9)
[2022-04-22 04:00] VITALS: BP 132/73
[2022-04-22] MEDS ORDERED: POTASSIUM PHOS,M-BASIC-D-BASIC 20 MMOL in DEXT 5% WATER 243.3333 ML IV NR (07:30)
[2022-04-22 08:00] VITALS: BP 131/85
[2022-04-22] MEDS: FERROUS SULFATE 300MG/5ML UDC PO SCH ×3 (08:09→17:26)
[2022-04-22] MEDS: LEVETIRACETAM 500MG PREMIX 100 ML IV SCH ×2 (08:10→20:31)
[2022-04-22] MEDS: PANTOPRAZOLE SODIUM 40 MG/VIAL IV SCH ×2 (08:10→20:31)
[2022-04-22] MEDS ORDERED: IOHEXOL-300 100 ML BOTTLE ONE (08:45)
[2022-04-22] MEDS ORDERED: LIDOCAINE HCL/PF 1% 10 MG/ML 5ML VIAL ONE (08:45)
[2022-04-22 11:30] VITALS: BP 139/85
[2022-04-22] MEDS: LEVOFLOXACIN 500MG PREMIX 100 ML IV SCH (13:19)
[2022-04-22 16:00] VITALS: BP 152/74
[2022-04-22 20:00] VITALS: BP 134/45
[2022-04-23] VITALS: BP 130/76
[2022-04-23 04:00] VITALS: BP 120/82
[2022-04-23 06:43] LABS: HEMATOCRIT. 30.8 % (42.0-52.0); MEAN CORPUSCULAR HEMOGLOBIN 23.9 pg (28.0-32.0); MEAN CORPUSCULAR VOLUME 73.2 fL (80.0-94.0); MEAN PLATELET VOLUME 8.3 fl (7.4-10.4); PLATELET 277 x1000/uL (130-400); RED BLOOD CELL COUNT 4.21 mill/uL (4.7-6.1); RED CELL DISTRIBUTION WIDTH 18.7 % (11.6-14.6)
[2022-04-23 06:53] LABS: CHLORIDE 109 mEq/L (98-107)
[2022-04-23 08:00] VITALS: BP 134/84
[2022-04-23] MEDS: LEVETIRACETAM 500MG PREMIX 100 ML IV SCH ×2 (09:08→21:53)
[2022-04-23] MEDS: FERROUS SULFATE 300MG/5ML UDC PO SCH ×3 (09:08→16:50)
[2022-04-23] MEDS: PANTOPRAZOLE SODIUM 40 MG/VIAL IV SCH ×2 (09:08→21:52)
[2022-04-23 12:00] VITALS: BP 137/86
[2022-04-23] MEDS ORDERED: DOCUSATE SODIUM 100MG CAPSULE NG PRN (12:15)
[2022-04-23] MEDS ORDERED: DOCUSATE SODIUM SUGAR FREE 100MG/10ML UDC NG PRN (12:19)
[2022-04-23] MEDS: LEVOFLOXACIN 500MG PREMIX 100 ML IV SCH (12:20)
[2022-04-23 16:00] VITALS: BP 125/83
[2022-04-23 20:00] VITALS: BP 144/87
[2022-04-23] MEDS: CEFEPIME 1,000 MG in DEXTROSE 5% WATER 50 ML IV SCH (21:52)
[2022-04-23] MEDS: METRONIDAZOLE 500MG TABLET PO SCH (21:53)
[2022-04-23 22:36] LABS: PLATELET ESTIMATE NORMAL
[2022-04-24] VITALS: BP 138/66
[2022-04-24 08:00] VITALS: BP 128/84
[2022-04-24 12:00] VITALS: BP 106/70
[2022-04-24] MEDS: FERROUS SULFATE 300MG/5ML UDC PO SCH ×3 (12:40→20:01)
[2022-04-24 13:14] LABS: BASOPHILS % 0.2 % (0.0-2.0); EOSINOPHILS % 0.2 % (0.0-5.0); HEMOGLOBIN. 9.8 g/dL (14.0-18.0); LYMPHOCYTES % 7.3 % (20.0-50.0); MEAN CORPUSCULAR HEMOGLOBIN 23.5 pg (28.0-32.0); MEAN CORPUSCULAR VOLUME 74.4 fL (80.0-94.0); MEAN PLATELET VOLUME 8.2 fl (7.4-10.4); MONOCYTES % 5.7 % (2.0-8.0); NEUTROPHILS % 86.6 % (40.0-76.0); PLATELET 318 x1000/uL (130-400); RED BLOOD CELL COUNT 4.16 mill/uL (4.7-6.1); RED CELL DISTRIBUTION WIDTH 19.2 % (11.6-14.6)
[2022-04-24] MEDS: LEVOFLOXACIN 500MG PREMIX 100 ML IV SCH (14:25)
[2022-04-24 16:00] VITALS: BP 130/78
[2022-04-24 16:39] LABS: CHLORIDE 106 mEq/L (98-107)
[2022-04-24 20:00] VITALS: BP 133/69
[2022-04-24] MEDS: CEFEPIME 1,000 MG in DEXTROSE 5% WATER 50 ML IV SCH ×2 (20:00→20:20)
[2022-04-24] MEDS: PANTOPRAZOLE SODIUM 40 MG/VIAL IV SCH ×2 (20:20→21:00)
[2022-04-24] MEDS: LEVETIRACETAM 500MG PREMIX 100 ML IV SCH ×2 (20:20→21:00)
[2022-04-24] MEDS: METRONIDAZOLE 500MG TABLET PO SCH ×2 (20:24→21:00)
[2022-04-25] VITALS: BP 119/70
[2022-04-25 03:32] LABS: HEMOGLOBIN. 9.3 g/dL (14.0-18.0); MEAN CORPUSCULAR HEMOGLOBIN 23.3 pg (28.0-32.0); MEAN CORPUSCULAR VOLUME 72.9 fL (80.0-94.0); MEAN PLATELET VOLUME 7.7 fl (7.4-10.4); PLATELET 297 x1000/uL (130-400); RED BLOOD CELL COUNT 3.98 mill/uL (4.7-6.1); RED CELL DISTRIBUTION WIDTH 19.3 % (11.6-14.6)
[2022-04-25 03:37] LABS: CHLORIDE 109 mEq/L (98-107)
[2022-04-25 03:56] LABS: PROTHROMBIN TIME 11.2 sec (9.6-11.0)
[2022-04-25 04:00] VITALS: BP 112/68
[2022-04-25 08:00] VITALS: BP 108/84
[2022-04-25] MEDS ORDERED: SODIUM CHLORIDE 0.9% 500 ML IV ONE (08:45)
[2022-04-25] MEDS: CEFEPIME 1,000 MG in DEXTROSE 5% WATER 50 ML IV SCH (08:47)
[2022-04-25 09:17] LABS: BG BASE EXCESS 3.8 mmol/L (-2.0-2.0); BG CARBOXYHEMOGLOBIN 0.3 % (0.5-1.5); BG DEOXYHEMOGLOBIN 7.3 % (0.0-5.0); BG FRACTION INSPIRED OXYGEN 21; BG METHEMOGLOBIN 0.3 % (0.0-1.5); BG OXYGEN SATURATION 92.7 % (92.0-98.5); BG OXYHEMOGLOBIN 92.1 % (94.0-97.0); BG PCO2 35.2 mmHg (35.0-45.0); BG PH 7.502 (7.350-7.450); BG SAMPLE SITE RIGHT RADIAL; BG TOTAL HEMOGLOBIN 10.4 g/dL (12.0-18.0); BG VENT MODE ROOM AIR
[2022-04-25] MEDS ORDERED: MORPHINE SULFATE 2 MG/ML CPJ (NOT FOR IM USE) IV PRN (10:45)
[2022-04-25 12:00] VITALS: BP 109/71
[2022-04-25] MEDS: MORPHINE SULFATE 250 MG in DEXT 5% WATER 225 ML IV PRN (15:12)
[2022-04-25 20:00] VITALS: BP 124/77
[2022-04-26] VITALS: BP 118/70
[2022-04-26 04:00] VITALS: BP 115/76
[2022-04-26 06:16] LABS: PLATELET ESTIMATE NORMAL
[2022-04-26] MEDS ORDERED: LEVETIRACETAM 500 MG in SODIUM CHLORIDE 0.9% 100 ML IV SCH (07:30)
[2022-04-26 08:00] VITALS: BP 97/58
[2022-04-26] MEDS: LEVETIRACETAM 500MG PREMIX 100 ML IV SCH ×3 (10:06→21:04)
[2022-04-26 12:00] VITALS: BP 101/60
[2022-04-26 16:00] VITALS: BP 104/61
[2022-04-26 20:00] VITALS: BP_SYST 114; BP_SYST 139; BP_DIAS 71; BP_DIAS 83
[2022-04-27] VITALS: BP 103/62
[2022-04-27 04:00] VITALS: BP 104/59
[2022-04-27 08:00] VITALS: BP 101/71
[2022-04-27] MEDS ORDERED: ACETAMINOPHEN 650MG/20.3ML UDC PO SCH (12:30)
[2022-04-27 20:00] VITALS: BP 108/63
[2022-04-27] MEDS: LEVETIRACETAM 500MG PREMIX 100 ML IV SCH (21:28)
[2022-04-28] VITALS: BP 95/53
[2022-04-28] MEDS: ACETAMINOPHEN 650MG/20.3ML UDC PO PRN (03:17)
[2022-04-28 04:00] VITALS: BP 99/57
[2022-04-28 07:50] VITALS: BP 106/57
[2022-04-28] MEDS: LEVETIRACETAM 500MG PREMIX 100 ML IV SCH ×2 (08:53→20:00)
[2022-04-28 12:00] VITALS: BP 109/55
[2022-04-28 16:00] VITALS: BP 105/68
[2022-04-28 20:00] VITALS: BP 161/75
[2022-04-29] VITALS: BP 140/87
[2022-04-29 04:00] VITALS: BP 113/65
[2022-04-29 08:00] VITALS: BP 105/55
[2022-04-29] MEDS: LEVETIRACETAM 500MG PREMIX 100 ML IV SCH ×2 (08:35→20:46)
[2022-04-29] MEDS: ACETAMINOPHEN 650MG/20.3ML UDC PO PRN ×2 (08:36→16:21)
[2022-04-29 12:00] VITALS: BP 100/75
[2022-04-29 16:00] VITALS: BP 159/82
[2022-04-29 20:00] VITALS: BP 122/71
[2022-04-30] VITALS: BP 132/78
[2022-04-30 04:00] VITALS: BP 127/76
[2022-04-30 07:09] LABS: BASOPHILS % 0.2 % (0.0-2.0); HEMATOCRIT. 28.4 % (42.0-52.0); HEMOGLOBIN. 9.1 g/dL (14.0-18.0); LYMPHOCYTES % 10.7 % (20.0-50.0); MEAN CORPUSCULAR HEMOGLOBIN 23.5 pg (28.0-32.0); MEAN CORPUSCULAR VOLUME 73.3 fL (80.0-94.0); MONOCYTES % 4.7 % (2.0-8.0); NEUTROPHILS % 84.4 % (40.0-76.0); PLATELET 258 x1000/uL (130-400); RED BLOOD CELL COUNT 3.88 mill/uL (4.7-6.1); RED CELL DISTRIBUTION WIDTH 18.8 % (11.6-14.6)
[2022-04-30 07:28] LABS: CHLORIDE 109 mEq/L (98-107)
[2022-04-30 08:00] VITALS: BP 132/69
[2022-04-30] MEDS: LEVETIRACETAM 500MG PREMIX 100 ML IV SCH ×2 (10:02→21:31)
[2022-04-30 12:00] VITALS: BP 132/69
[2022-04-30 16:00] VITALS: BP 132/69
[2022-04-30] MEDS ORDERED: MORPHINE SULFATE 2 MG/ML CPJ (NOT FOR IM USE) IV PRN (17:30)
[2022-04-30] MEDS ORDERED: MORPHINE SULFATE 250 MG in DEXT 5% WATER 225 ML IV PRN (17:45)
[2022-04-30 20:00] VITALS: BP 138/90
[2022-05-01] VITALS: BP 119/70
[2022-05-01] MEDS: MORPHINE SULFATE 250 MG in DEXT 5% WATER 225 ML IV PRN (02:11)
[2022-05-01 04:00] VITALS: BP 122/74
[2022-05-01 08:00] VITALS: BP 120/61
[2022-05-01] MEDS: LEVETIRACETAM 500MG PREMIX 100 ML IV SCH (08:49)
[2022-05-01 12:00] VITALS: BP 110/62
[2022-05-01 16:00] VITALS: BP 108/59
[2022-05-01 20:00] VITALS: BP 102/54
[2022-05-02] VITALS: BP_SYST 106; BP_SYST 116; BP_DIAS 55; BP_DIAS 56
[2022-05-02] MEDS: LEVETIRACETAM 500MG PREMIX 100 ML IV SCH ×2 (00:45→13:01)
[2022-05-02 08:00] VITALS: BP 124/98
[2022-05-02 12:00] VITALS: BP 123/99
== END 2022-05-02 15:00 | DRG 682 ==
LOC: ER 08:59 → EDBEDREQTM 13:15 → EDBEDREQ 13:15 → ENRESERV 15:39 → 8WST 16:05 → MICUNO 04-16 21:49 → 8WST 04-17 20:10 → 6EST 05-01 18:29
PROVIDERS: ADMIT Internal Medicine; ATTEND Internal Medicine
PROC: 06H03DZ Insertion of Intraluminal Device into Inferior Vena Cava, Percutaneous Approach (ICD-10-PCS; principal; 2022-04-22)
DX: N17.0 Acute kidney failure with tubular necrosis (principal); I46.9 Cardiac arrest, cause unspecified; J69.0 Pneumonitis due to inhalation of food and vomit; J96.01 Acute respiratory failure with hypoxia; I82.422 Acute embolism and thrombosis of left iliac vein; G93.40 Encephalopathy, unspecified; G81.94 Hemiplegia, unspecified affecting left nondominant side; Z68.1 Body mass index [BMI] 19.9 or less, adult; E86.0 Dehydration; I10 Essential (primary) hypertension; Z20.822 Contact with and (suspected) exposure to COVID-19; F03.90 Unspecified dementia, unspecified severity, without behavioral disturbance, psychotic disturbance, mood disturbance, and anxiety; G40.909 Epilepsy, unspecified, not intractable, without status epilepticus; E78.5 Hyperlipidemia, unspecified; R13.12 Dysphagia, oropharyngeal phase; N27.1 Small kidney, bilateral; I95.9 Hypotension, unspecified; E86.9 Volume depletion, unspecified; J43.9 Emphysema, unspecified; D64.9 Anemia, unspecified; D72.829 Elevated white blood cell count, unspecified; R62.7 Adult failure to thrive; I73.9 Peripheral vascular disease, unspecified; Z79.899 Other long term (current) drug therapy; Z66 Do not resuscitate; Z51.5 Encounter for palliative care; Z74.01 Bed confinement status; Z86.73 Personal history of transient ischemic attack (TIA), and cerebral infarction without residual deficits; Z86.718 Personal history of other venous thrombosis and embolism; Z87.891 Personal history of nicotine dependence; Z85.841 Personal history of malignant neoplasm of brain; Z86.711 Personal history of pulmonary embolism; Z95.828 Presence of other vascular implants and grafts; Z87.440 Personal history of urinary (tract) infections
CPT/HCPCS: 36415; 36600; 37191; 70551; 71045; 74018; 76705; 76770; 80048; 80053; 80305; 80320; 81003; 82140; 82375; 82550; 82805; 83540; 83550; 83735; 83880; 84100; 84443; 84484; 85025; 87426; 92610; 93005; 93970; 99285; A6261; C1769; C1880; C9113; J0692; J0696; J1100; J1644; J1650; J1953; J1956; J2270; J3490; J7050; J7060; Q9967; A5200; G0480